=== PATIENT | female | born 1955 | race Caucasian/White ===

== ENCOUNTER 2023-10-05 14:45 | Outpatient (AMB) | payer MEDICARE, SELFPAY ==
[2023-10-05 15:08] VITALS: BP 124/80; PULSE 78; O2SAT 94; BMI 26.0
--- NOTE | 2023-10-05 15:08 | A.OFFPC_ITS ---
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 Allergies Penicillins Allergy (Mild, Verified 10/05/23 15:12) Hives soy Allergy (Mild, Verified 10/05/23 15:13) vomiting, headache gluten Allergy (Mild, Uncoded 10/05/23 15:12) stomach pain, brain fog Medication List - Last Reconciled 10/05/23 by Keyon Man MD alprazolam (Xanax) 2 mg PO DAILY atorvastatin 40 mg PO DAILY Bifidobacterium infantis (Align) 4 mg PO DAILY colestipol 2 grams PO DAILY duloxetine 60 mg PO DAILY losartan 50 mg PO DAILY Tobacco use date assessed: 10/05/23 Fall risk assessment: No Falls in past year Last assessed Fall Risk: 10/05/23 Dental Screening Dental Screen Date: 10/05/23 Did you have a dental visit in the last 12 months?: Yes Did you have a dental problem in the last 6 months where you did not have access to dental care?: No Was dental information given to patient?: Patient has dentist 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 [facility] x [facility] [facility] Last office visit/CPE: Acute issue(s): h/o Colon Ca Dr Ellsworth, Dr Hanson PMHx: Colon Ca primary w/ Liver mets. Colon Resection, Partial Liver resection, Chemo.. Barretts Esophagus, HTN, HLD, Anxiety SurgHx: Colostomy & reversal. Colon resection, Partial Liver, L shoulder. FHx: Dad: Heart disease. Mom Esophageal CA. SocHx: Quit cigs 10 yrs ago. EtOH. 2 glasses a few times a week. No drugs PFSH Medical History (Updated 10/05/23 @ 15:45 by Efra Cheng) History of liver cancer Sacral nerve stimulator present Liver cancer Colon cancer Surgical History (Updated 10/05/23 @ 15:28 by Mary Carmen Erickson [facility]) H/O resection of liver Social History Household Members: Children Housing: House Are you a primary career technical counselor to a significant other at home: No Do you presently have visiting nurse or other home services: No 75 years or older and lives alone: No Alcohol intake: current Comment: a couple Patient Tobacco Use Status: Former Tobacco user e-Cigarette/Vaping Use: Never Used service: No Current occupational status: retired Cognitive needs: No Hearing needs: No Vision needs: No Questionnaire PHQ-9 Over the last 2 weeks, how often have you been bothered by any of the following problems? 1. Little interest or pleasure in doing things: not at all 2. Feeling down, depressed, or hopeless: not at all 3. Trouble falling or staying asleep, or sleeping too much: not at all 4. Feeling tired or having little energy: not at all 5. Poor appetite or overeating: not at all 6. Feeling bad about yourself - or that you are a failure or have let yourself or your family down: not at all 7. Trouble concentrating on things, such as reading the newspaper or watching television: not at all 8. Moving or speaking so slowly that other people could have noticed. Or the opposite - being so fidgety or restless that you have been moving around a lot more than usual: not at all 9. Thoughts that you would be better off or of hurting yourself in some way: not at all Total score: 0 Depression Screening Interpretation: Negative Depression Screening Done: Yes 73349 - PHQ-9 Billing: Yes Source: Developed by Drs. Tung Freeman, Cara Mohan, Santos Anderson and colleagues, with an educational ramya from [employer]. Thrive Questionnaire Date Thrive assessed: 10/05/23 I am a: Patient What is your living situation today?: I have a steady place to live Within the past 12 months, did the food you bought not last and you didn't have the money to get more?: Never true Within the past 12 months, did you worry whether your food would run out before you got money to buy more?: Never true Do you have trouble paying for medicines?: No Do you have trouble getting transportation to medical appointments?: No Do you have trouble paying your heating and electricity bill?: No Do you have trouble taking care of your child, family member or friend?: No Do you have trouble with day-to-day activities such as bathing, preparing meals, shopping, managing finances, etc.?: No Are you currently unemployed and looking for a job?: No Are you interested in more education?: No THRIVE Score: 0 AUDIT C Alcohol Use Questionnaire (AUDIT-C) 1. How often do you have a drink containing alcohol?: 2-3 times a week 2. How many drinks containing alcohol do you have on a typical day when you are drinking?: 1 or 2 3. How often do you have six or more drinks on one occasion?: Never Total Score: 3 JULIEN-7 AMB Questionnaire JULIEN-7 Date JULIEN - 7 assessed: 10/05/23 Feeling nervous, anxious, or on edge: 0 = Not at all Not being able to stop or control worryin = Not at all Worrying too much about different things: 0 = Not at all Trouble relaxin = Not at all Being so restless that it is hard to sit still: 0 = Not at all Becoming easily annoyed or irritable: 0 = Not at all Feeling afraid as if something awful might happen: 0 = Not at all Total JULIEN-7 score (0-4 normal; 5-9 mild; 10-14 moderate; 15-21 severe): 0 Source: Developed by Drs. Tung Freeman, Cara Mohan, Santos Anderson and colleagues, with an educational ramya from [employer]. JULIEN-7 Assessment Billing JULIEN-7 Assessment Tool: JULIEN-7 Assessment 30059 Review of Systems Const Denies chills, Denies fatigue, Denies fever(s), Denies headache(s) and Denies weakness ENT Denies dizziness and Denies headache(s) Card Denies chest pain, Denies lightheadedness, Denies dyspnea and Denies other (Palpitations) Resp Denies cough, Denies dyspnea, Denies wheezing and Denies other ( shortness of breath) Musc Denies numbness and Denies tingling Neuro Denies dizziness, Denies headache(s), Denies numbness, Denies tingling, Denies paresthesias and Denies weakness Psych Denies anxiety and Denies depression Endo Denies fatigue Aller/Immun Denies wheezing Physical exam (Primary Care) BMI result Body Mass Index 26.0 Tobacco/Smoking Status: Tobacco use Status Tobacco use date assessed 10/05/23 10/05/23 15:17 Patient Tobacco Use Status Former Tobacco user 10/05/23 15:17 e-Cigarette/Vaping Use Never Used 10/05/23 15:17 Depression Screening Interpretation: Negative Const General: no acute distress and well developed Nutritional Appearance: well nourished Orientation/consciousness: patient oriented x3 HENMT Head: Yes normocephalic and Yes atraumatic Eyes General: appearance normal, both eyes and all related structures Pupils: Equal, round and reactive pupils present EOM: EOMs intact bilaterally Resp Effort & Inspection: normal respiratory effort Auscultation: clear to auscultation bilaterally Cardio Rate: regular rate Rhythm: regular rhythm Heart sounds: S1 normal heart sound present, S2 normal heart sound present, no gallops, no murmurs and no rubs Neuro General: patient oriented x3 and gait normal Cranial nerves: Yes Equal, round and reactive pupils present Psych Affect: normal affect Assessment and Plan Assessment & Plan (1) Hypertension: Code(s): I10 - Essential (primary) hypertension Plan: Blood?pressure?is?well?controlled.??Goal?is?less?than?140/90 Continue?current?medication (2) Hyperlipidemia: Code(s): E78.5 - Hyperlipidemia, unspecified Plan: Patient?is?on?atorvastatin?40?mg?daily Check?lab (3) History of colon cancer: Code(s): Z85.038 - Personal history of other malignant neoplasm of large intestine Plan: History?of?colon?cancer?with?metastases?to?the?liver?10?years?ago. S/p partial?colon?resection?and?partial?liver?resection?and?s/p?chemotherapy Now?in?remission?and?followed?by??Neil?and??Seng Follow-up?as?recommended (4) Anxiety: Code(s): F41.9 - Anxiety disorder, unspecified Plan: Stable?on?duloxetine?and?alprazolam Will?continue?her?regimen Stable (5) Laboratory exam ordered as part of routine general medical examination: Code(s): Z00.00 - Encounter for general adult medical examination without abnormal findings Plan: Check?labs Orders: Orders Lipid Panel Today Z00.00 - Encounter for general adult medical examination without abnormal findings Microalbumin, Random (w Creat) Today I10 - Essential (primary) hypertension Comprehensive Addison. Panel Fast Today Z00.00 - Encounter for general adult medical examination without abnormal findings Complete Blood Count Auto Diff Today Z00.00 - Encounter for general adult medical examination without abnormal findings UA and rflx microscopic Today Z00.00 - Encounter for general adult medical examination without abnormal findings TSH reflex Free T4 Today Z00.00 - Encounter for general adult medical examination without abnormal findings Vitamin B12 and Folate Today E53.8 - Deficiency of other specified B group vitamins Vitamin D 25-OH Total Today E55.9 - Vitamin D deficiency, unspecified Coding Level of Care Code New Pt Level 3 (52308) Diagnoses Hypertension I10 Hyperlipidemia E78.5 History of colon cancer Z85.038 Anxiety F41.9 Laboratory exam ordered as part of routine general medical examination Z00.00 Additional Codes JULIEN-7 Assessment Billing - JULIEN-7 Assessment Tool: JULIEN-7 Assessment 54605 ([id number])
== END 2023-10-05 15:55 | disposition home or self-care (01) ==
PROVIDERS: PCP Family Medicine; Visit Provider Family Medicine
DX: I10 Essential (primary) hypertension (principal); E78.5 Hyperlipidemia, unspecified; Z85.038 Personal history of other malignant neoplasm of large intestine; F41.9 Anxiety disorder, unspecified
CPT/HCPCS: 99203

== ENCOUNTER 2023-11-30 09:52 | Outpatient (REF) | payer MEDICARE, SELFPAY ==
[2023-11-30 11:13] LABS: MANUAL DIFF FLAG NO
[2023-11-30 11:44] LABS: Eosinophils Absolute Auto 0.2 X10*3/uL (0.0-0.4); Eosinophils Percent Auto 4.1 % (0-4); Hematocrit 40.2 % (37.0-47.0); Hemoglobin 12.8 g/dl (12.0-16.0); Imm Gran Abs Auto 0.01 X10*3/uL (0.00-0.03); Imm Gran Pct Auto 0.2 % (0.0-0.4); Lymphocytes Absolute Auto 1.2 X10*3/uL (1.2-4.9); Lymphocytes Percent Auto 28.6 % (20-40); Mean Corpuscular HGB Conc 31.8 g/dl (31.0-35.0); Mean Corpuscular Hemoglobin 30.3 pg (27.0-33.0); Mean Platelet Volume 10.2 fL (9.4-12.3); Monocytes Absolute Auto 0.3 X10*3/uL (0.1-1.2); Neutrophils Absolute Auto 2.4 x10*3/uL (2.0-8.3); Neutrophils Percent Auto 59.1 % (45-73); Platelet Count 273 X10*3/uL (160-400); Red Blood Count 4.23 X10*6/uL (4.20-5.50); Red Cell Distribution Width 13.1 % (11.0-16.0); White Blood Count 4.1 X10*3/uL (4.8-10.8)
[2023-11-30 11:48] LABS: Appearance Urine Clear; Color Urine Yellow; Glucose Urine UA Negative (Negative); Leukocyte Esterase Urine Moderate (2+) (Negative); Nitrite Urine Negative (Negative); PH 5.5 (5.0-9.0); UMIC TRIGGER UA YES; Urine Blood Negative (Negative); Urine Ketones Negative (Negative); Urine Protein Negative (Neg-Trace)
[2023-11-30 11:57] LABS: Bacteria Urine 4+ (None Seen); Hyaline Casts Urine 0-2 /LPF (0-2); RBC Urine 0-2 /HPF (0-2)
[2023-11-30 12:21] LABS: Creatinine Urine 39.03 mg/dL; Microalbumin Urine < 5.0 mg/L
[2023-11-30 12:25] LABS: Alanine Aminotransferase 14 U/L (0-31); Albumin Level 4.5 g/dL (3.5-5.0); Alkaline Phosphatase 93 U/L (39-117); Anion Gap 13 (12-20); Aspartate Amino Transferase 16 U/L (5-31); Bilirubin Total 0.6 mg/dL (0.0-1.0); Blood Urea Nitrogen 9 mg/dL (9-16); Calcium 10.2 mg/dL (8.4-10.2); Carbon Dioxide 28 mmol/L (22-29); Chloride 107 mmol/L (96-108); Cholesterol 164 mg/dL (<200); Estimated Glomerular Filt Rate > 60; Glucose Fasting 97 mg/dL (60-99); HDL Cholesterol 73 mg/dL (>40); LDL Cholesterol Calculated 78 mg/dL (<100); Potassium 4.5 mmol/L (3.3-5.1); Sodium 143 mmol/L (135-145); Triglycerides 66 mg/dL (<150)
[2023-11-30 12:29] LABS: TSH reflex Free T4 1.16 uIU/mL (0.32-4.0); Vitamin D 25-OH Total 35.8 ng/mL (>30)
[2023-11-30 12:38] LABS: Folate 3.2 ng/mL (> or = 4.0); Vitamin B12 254 pg/mL (200-900)
== END 2023-11-30 09:53 | disposition home or self-care (01) ==
LOC: HO.WFDLDS 09:52
PROVIDERS: Visit Provider Family Medicine
DX: Z00.00 Encounter for general adult medical examination without abnormal findings (principal); E53.8 Deficiency of other specified B group vitamins; I10 Essential (primary) hypertension; E55.9 Vitamin D deficiency, unspecified
CPT/HCPCS: 36415; 80053; 80061; 81001; 82043; 82306; 82570; 82607; 82746; 84443; 85025

== ENCOUNTER 2023-12-08 10:48 | Outpatient (AMB) | payer MEDICARE, SELFPAY ==
[2023-12-08 11:16] VITALS: BP 122/70; PULSE 80; O2SAT 97; BMI 26.2
--- NOTE | 2023-12-08 11:16 | MHC.PC.OV ---
Vital Signs 12/08/23 11:16 Height 5 ft 10 in Weight 182 lb 8 oz BMI 26.2 BP 122/70 Blood Pressure Location Lt brachial Position Sitting Pulse 80 Pulse Source Pulse Oximeter Pulse Oximetry (%) 97 Oxygen Delivery Method Room Air Intake Visit Reasons: Extended exam with f/u labs and health maint. Intake Note: Patient is here for her extended exam and follow up on labs and health maintainence. She states that when she had CT scan, they are afraid to put dye in her because of a lump in her arm. Allergies Penicillins Allergy (Mild, Verified 12/08/23 11:18) Hives soy Allergy (Mild, Verified 12/08/23 11:18) vomiting, headache gluten Allergy (Mild, Uncoded 12/08/23 11:18) stomach pain, brain fog Medication List - Last Reconciled 12/08/23 by Keyon Man MD alprazolam (Xanax) 2 mg PO DAILY atorvastatin 40 mg PO DAILY Bifidobacterium infantis (Align) 4 mg PO DAILY colestipol 2 grams PO DAILY duloxetine 60 mg PO DAILY losartan 50 mg PO DAILY Tobacco use date assessed: 10/05/23 Fall risk assessment: No Falls in past year Last assessed Fall Risk: 12/08/23 Dental Screening Dental Screen Date: 12/08/23 HPI Extended exam with f/u labs and health maint. HPI Details 68 y/o female presents for an extended exam with f/u labs and health maintenance. Labs were drawn 11/30/23. Reviewed labs with pt. Triglcyerides 66. TC 164. LDL 78. HDL 73. She is on artovastatin 40mg daily, colestipol. Vitamin D 35.8. Blood pressure today 122/70. She is on losartan 50mg daily. Pt notes she eats a healthy diet and gets plenty of exercise. [facility] Medical History History of liver cancer Sacral nerve stimulator present Liver cancer Colon cancer Surgical History H/O resection of liver Social History Household Members: Children Housing: House Are you a primary home care coordinator to a significant other at home: No Do you presently have visiting nurse or other home services: No 75 years or older and lives alone: No Alcohol intake: current Comment: a couple Patient Tobacco Use Status: Former Tobacco user e-Cigarette/Vaping Use: Never Used service: No Current occupational status: retired Cognitive needs: No Hearing needs: No Vision needs: No Questionnaire Thrive Questionnaire Date Thrive assessed: 10/05/23 JULIEN-7 AMB Questionnaire JULIEN-7 Date JULIEN - 7 assessed: 10/05/23 Source: Developed by Drs. Tung Freeman, Cara Mohan, Santos Anderson and colleagues, with an educational ramya from [email or web address]. Review of Systems Const Denies chills, Denies fatigue, Denies fever(s), Denies headache(s) and Denies weakness Eyes Denies change in vision ENT Denies dizziness, Denies headache(s), Denies hearing loss, Denies nasal congestion, Denies sinus pain, Denies sinus pressure and Denies sore throat Card Denies chest pain, Denies lightheadedness, Denies dyspnea and Denies other (palpitations) Resp Denies cough, Denies dyspnea and Denies wheezing GI Denies abdominal pain, Denies melena, Denies hematochezia, Denies change in bowel habits, Denies dyspepsia and Denies nausea Denies hematuria and Denies dysuria Musc Denies abnormal gait, Denies myalgias, Denies arthralgias, Denies numbness and Denies tingling Skin/Breast Denies rash, Denies unusual bruising and Denies wounds Neuro Denies abnormal gait, Denies dizziness, Denies headache(s), Denies memory loss, Denies numbness, Denies Sensory deficit (Neuro), Denies tingling and Denies weakness Psych Denies anxiety, Denies depression and Denies memory loss Endo Denies cold intolerance, Denies fatigue, Denies heat intolerance, Denies polydipsia and Denies polyuria [place]/Lymph Denies easy bleeding and Denies easy bruising Aller/Immun Denies wheezing Physical exam (Primary Care) Vital Signs: Last Vital Signs Pulse 80 12/08/23 11:16 BP 122/70 12/08/23 11:16 Pulse Ox 97 12/08/23 11:16 Oxygen Delivery Method Room Air 12/08/23 11:16 BMI result Body Mass Index 26.2 Tobacco/Smoking Status: Tobacco use Status Tobacco use date assessed 10/05/23 12/08/23 11:18 Patient Tobacco Use Status Former Tobacco user 12/08/23 11:18 e-Cigarette/Vaping Use Never Used 12/08/23 11:18 Thrive Assessment: Date of Thrive Assessment Date Thrive assessed 10/05/23 12/08/23 11:18 Const General: no acute distress, well developed, alert and awake Nutritional Appearance: well nourished Orientation/consciousness: patient oriented x3 HENMT Head: Yes normocephalic and Yes atraumatic Ears: hearing grossly normal bilaterally and TM's normal bilaterally General nose exam: Normal external nose present and Normal nares present Mouth: Normal oral and palatal mucosa present and moist mucous membranes Teeth and gingiva: dentition normal Throat: Yes posterior oropharynx normal Eyes General: appearance normal, both eyes and all related structures Pupils: Equal, round and reactive pupils present and Pupil accommodation reflex normal EOM: EOMs intact bilaterally Neck Neck: Yes normal visual inspection, Yes no lymphadenopathy and Yes trachea midline Thyroid: Thyroid normal Carotids: no bruits Lymphatic: no lymphadenopathy noted Chest Chest palpation & inspection: normal inspection of the chest Resp Effort & Inspection: normal respiratory effort Auscultation: clear to auscultation bilaterally Cardio Rate: regular rate Rhythm: regular rhythm Heart sounds: S1 normal heart sound present, S2 normal heart sound present, no gallops, no murmurs and no rubs Bruits: no abdominal aortic bruits and no carotid bruits GI Palpation (GI): No Abdominal aortic bruit present, Soft to palpation, nontender, No hepatosplenomegaly present and No Rebound tenderness present Auscultation: normal bowel sounds General: Yes no CVA tenderness Back/Spine/Pelvis Back: no CVA tenderness Cervical Spine: cervical ROM normal and No Cervical spine tenderness Thoracic/Lumbar Spine: thoraco-lumbar ROM normal, No pain with thoraco-lumbar ROM, No thoracic spinal tenderness and No lumbar spinal tenderness Skin Lesions: no lesions Rashes: no rashes Trauma: no lacerations or abrasions Wounds: no wounds Nails: normal Neuro General: patient oriented x3 Cranial nerves: Yes Equal, round and reactive pupils present Cognition (Neuro): normal cognition Gait exam (Neuro): Normal gait present Motor exam (neuro): 5/5 motor strength present throughout Sensory Exam: No Sensory deficit (Neuro) Deep tendon reflexes (DTR's): Right patellar reflex intensity grade: 2+ and Left patellar reflex intensity grade: 2+ Extrem General: Yes normal to inspection and No edema Psych Appearance: grossly normal Affect: normal affect Attitude: cooperative Thought process: Normal thought process present Assessment and Plan Assessment & Plan (1) Hyperlipidemia: Code(s): E78.5 - Hyperlipidemia, unspecified Plan: Lipids?are?well?controlled?on?atorvastatin Continue?current?medication (2) Hypertension: Code(s): I10 - Essential (primary) hypertension Plan: Blood?pressure?is?well?controlled goal?is?less?than?140/90 Continue?current?medication (3) Screening for colon cancer: Code(s): Z12.11 - Encounter for screening for malignant neoplasm of colon Plan: Followed?by?her?ornamental ironworker helper,??Valentin History?of?colon?cancer Follow-up?with?GI?and?Hematology-Oncology?as?recommended (4) Breast cancer screening by mammogram: Code(s): Z12.31 - Encounter for screening mammogram for malignant neoplasm of breast Plan: Overdue?for?mammogram-ordered (5) Screening for osteoporosis: Code(s): Z13.820 - Encounter for screening for osteoporosis Plan: Patient?says?she?had?a?bone?density?test?within?the?past?2?years?at[facility] Will?request?report (6) Adult general medical exam: Code(s): Z00.00 - Encounter for general adult medical examination without abnormal findings Plan: 68-year-old?female?presents?for?extended?exam Orders: Orders MM tomosynthesis screening BI Today Z12.31 - Encounter for screening mammogram for malignant neoplasm of breast US extremity nonvascular moreno Today M79.89 - Other specified soft tissue disorders Medications: New folic acid 0.4 mg PO DAILY 90 days 90 tabs 3RF Coding Level of Care Code Est Pt Level 4 (24521) Diagnoses Hyperlipidemia E78.5 Hypertension I10 Screening for colon cancer Z12.11 Breast cancer screening by mammogram Z12.31 Screening for osteoporosis Z13.820 Adult general medical exam Z00.00
== END 2023-12-08 11:51 | disposition home or self-care (01) ==
PROVIDERS: PCP Family Medicine; Visit Provider Family Medicine
DX: Z00.00 Encounter for general adult medical examination without abnormal findings (principal); E78.5 Hyperlipidemia, unspecified; I10 Essential (primary) hypertension; Z12.11 Encounter for screening for malignant neoplasm of colon; Z12.31 Encounter for screening mammogram for malignant neoplasm of breast; Z13.820 Encounter for screening for osteoporosis
CPT/HCPCS: 99213; 99397

== ENCOUNTER 2023-12-15 15:05 | Outpatient (REF) | payer MEDICARE, SELFPAY ==
--- NOTE | ~2023-12-15 | US_ITS ---
EXAMINATION: ULTRASOUND SOFT TISSUES RIGHT ANTECUBITAL SPACE CLINICAL INFORMATION: Other specified soft tissue disorders, swelling/lump at right antecubital space. COMPARISON: None available. TECHNIQUE: Targeted ultrasound images were obtained by the second chef of the area of concern as indicated by the patient in the right antecubital space. Radiologist was not in attendance. Images were later provided for interpretation. FINDINGS: No discrete mass or fluid collection identified in the area of concern as indicated by the patient in the right antecubital space. Incidental note of varicosity in the right cephalic vein with no demonstrable reflux. Right cephalic vein appears patent and demonstrates compression. US/US extremity nonvascular moreno IMPRESSION: 1. No discrete mass or fluid collection identified in the area of concern as indicated by the patient in the right antecubital space. 2. Incidental note of varicosity in the right cephalic vein with no demonstrable reflux. Right cephalic vein appears patent and demonstrates compression. 3. Decisions regarding further imaging, treatment or biopsy should be based on the clinical exam, as not all abnormalities are detectable on ultrasound studies.
== END 2023-12-15 15:06 | disposition home or self-care (01) ==
LOC: HO.US 15:05
PROVIDERS: PCP Family Medicine; Visit Provider Family Medicine
DX: R60.0 Localized edema (principal)
CPT/HCPCS: 76882

== ENCOUNTER 2024-01-04 14:06 | Outpatient (REF) | payer MEDICARE, SELFPAY ==
--- NOTE | ~2024-01-04 | MM_ITS ---
EXAMINATION: MM SCREENING DIGITAL BREAST TOMOSYNTHESIS, BILATERAL CLINICAL INFORMATION: Screening. Asymptomatic. COMPARISON: Mammography: This study is compared with prior exams dating back to 2021. TECHNIQUE: Digital breast tomosynthesis is performed in both the craniocaudal and mediolateral oblique views along with computer-aided detection (CAD). Synthesized 2D images are generated from the tomosynthesis. FINDINGS: The breasts are heterogeneously dense, which may obscure small masses (ACR BI-RADS breast composition Category c). In the upper outer quadrant of the left breast, at a middle depth, there is a focal asymmetry which warrants additional mammographic and targeted sonographic imaging. In the right breast, there are no significant masses, abnormal calcifications, or other abnormalities. MM/MM tomosynthesis screening BI IMPRESSION: Focal asymmetry of the left breast warrants additional Mammographic and targeted sonographic imaging. No mammographic signs of malignancy right breast. ASSESSMENT: BI-RADS BI-RADS 0 - Incomplete: Needs additional Imaging. RECOMMENDATION: 1. Additional views of the left breast. 2. Targeted ultrasound if warranted after review of the additional views. 3. Radiology department staff will contact the patient for additional imaging. Additional Imaging required This examination should not preclude the clinical evaluation of a suspicious palpable abnormality. This patient's information was entered into a reminder system with a target due date for their next mammogram.
== END 2024-01-04 14:07 | disposition home or self-care (01) ==
LOC: HO.MAMMO 14:06
PROVIDERS: PCP Family Medicine; Visit Provider Family Medicine
DX: Z12.31 Encounter for screening mammogram for malignant neoplasm of breast (principal)
CPT/HCPCS: 77063; 77067

== ENCOUNTER → 2024-01-04 14:08 | Outpatient (BNV) | payer MEDICARE, SELFPAY | PROVIDERS: PCP Family Medicine; Visit Provider Radiology Diagnostic Radiology | DX: Z12.31 Encounter for screening mammogram for malignant neoplasm of breast (principal) | CPT/HCPCS: 77063; 77067 ==

== ENCOUNTER 2024-01-12 12:18 | Outpatient (AMB) | payer MEDICARE, SELFPAY ==
[2024-01-12 12:36] VITALS: BP 122/70; PULSE 85; O2SAT 100; BMI 26.0
--- NOTE | 2024-01-12 12:41 | MHC.OFFWIV ---
Intake Vital Signs 01/12/24 12:36 Height 5 ft 10 in Weight 181 lb 6 oz BMI 26.0 BP 122/70 Blood Pressure Location Lt brachial Position Sitting Pulse 85 Pulse Source Pulse Oximeter Pulse Oximetry (%) 100 Oxygen Delivery Method Room Air Intake Visit Reasons: Sinus infection Intake Note: Patient iis here with sinus infection [id number] for 4 days. Patient Tobacco Use Status: Former Tobacco user Allergies Penicillins Allergy (Mild, Verified 01/12/24 12:51) Hives soy Allergy (Mild, Verified 01/12/24 12:51) vomiting, headache gluten Allergy (Mild, Uncoded 01/12/24 12:40) stomach pain, brain fog Medication List - Last Reconciled 01/12/24 by Domonique Marcos, MUSIC EDUCATOR- alprazolam (Xanax) 2 mg PO DAILY atorvastatin 40 mg PO DAILY Bifidobacterium infantis (Align) 4 mg PO DAILY colestipol 2 grams PO DAILY duloxetine 60 mg PO DAILY folic acid 0.4 mg PO DAILY 90 days losartan 50 mg PO DAILY Do you need a note to return to daycare/school/sports/work: No HPI HPI Comments History of Present Illness Details 68-year-old female here today with chief complaints of pressure on the right side of her face. She reports that she was in her normal state of health until about 4 days ago when she developed a redness around the cheek bone on the right side. She at 1st thought that perhaps this was a clogged tear duct and self-treated with saline rinses and Visine. She noticed improvement in the redness of the skin however then felt pressure in the sinuses, blocked sensation in the right ear, postnasal drip. Awake alert NAD Sclera and conjunctiva clear bilat Nares mucoid d/c R , turbinates pale and edematous, + maxillary sinus tenderness with palpation R TM intact bilat w/ what appears to be resolving TM rupture on R, + congestion behind both TM MMM, pharynx WNL , + PND RRR LS CTAB Plan Treat for sinusitis using azithromycin, as she has an allergy to penicillin. Reports she has responded well in the past this. Advised to discontinue the use of the eye drops unless this provide some sort of benefit for her. Educated to return to the office if her symptoms not improve in 7-10 days or if her symptoms worsen. In regards to the R TM it is intact and appears w/o complication. This note is constructed using voice recognition software. While every effort has been made to ensure accuracy in scudding inspector, still errors may have been included Sometimes, these errors may affect the content or meaning of the given sentence . [facility] Medical History History of liver cancer Sacral nerve stimulator present Liver cancer Colon cancer Surgical History H/O resection of liver Social History Household Members: Children Housing: House Are you a primary personal care aid to a significant other at home: No Do you presently have visiting nurse or other home services: No 75 years or older and lives alone: No Alcohol intake: current Comment: a couple Patient Tobacco Use Status: Former Tobacco user e-Cigarette/Vaping Use: Never Used service: No Current occupational status: retired Cognitive needs: No Hearing needs: No Vision needs: No Physical Exam Vital Signs: Last Vital Signs Pulse 85 01/12/24 12:36 BP 122/70 01/12/24 12:36 Pulse Ox 100 01/12/24 12:36 Oxygen Delivery Method Room Air 01/12/24 12:36 BMI result Body Mass Index 26.0 Assessment & Plan Assessment & Plan (1) Acute bacterial sinusitis: Code(s): J01.90 - Acute sinusitis, unspecified; B96.89 - Other specified bacterial agents as the cause of diseases classified elsewhere Plan: . Plan . Medications: New azithromycin For 250 mg dose pack: take 500 mg today (day 1), then 250 mg for 4 days (days 2-5) PO 5 days 6 tabs 0RF Patient Instructions: What Is It? Sinuses are air-filled spaces behind the bones of the upper face: between the eyes and behind the forehead, nose and cheeks. The lining of the sinuses are made up of cells with tiny hairs on their surfaces called cilia. Other cells in the lining produce mucus. The mucus traps germs and pollutants and the cilia push the mucus out through narrow sinus openings into the nose. When the sinuses become inflamed or infected, the mucus thickens and clogs the openings to one or more sinuses. Fluid builds up inside the sinuses causing increased pressure. Also bacteria can become trapped, multiply and infect the lining. This is sinusitis. Prevention There are some measures you can take to decrease your risk of developing sinusitis. If you smoke cigarettes, you should quit. The smoke can irritate nasal passageways and increase the likelihood of infection. Nasal allergies can trigger sinus infections, too. By identifying the allergen (the substance causing the allergic reaction) and avoiding it, you can help prevent sinusitis. If you have congestion from a cold or allergies, the following may help to reduce the risk of developing sinusitis: Drink lots of water. This thins nasal secretions and keeps mucous membranes moist. Use steam to soothe nasal passages. Breathe deeply while standing in a hot shower, or inhale the vapor from a basin filled with hot water while holding a towel over your head. Avoid blowing your nose with great force, which can push bacteria into the sinuses. Some doctors advise periodic home nasal washings to clear secretions. This may help prevent, and also treat, sinus infections. Treatment Many sinus infections improve without treatment. However, several medications may speed recovery and reduce the chance that an infection will become chronic. Decongestants - Congestion often triggers sinus infections, and decongestants can open the sinuses and allow them to drain. Several are available: Pseudoephedrine (Sudafed) is available without prescription, alone or in combination with other medications in multi-symptom cold and sinus remedies. Pseudoephedrine can cause insomnia, racing pulse and jitteriness. Do not use if you have high blood pressure or a heart condition. Phenylephrine (such as Sudafed PE) is an alternative bteh-ekq-rleckra oral decongestant. If you take products containing oral phenylephrine, check with the pharmacist to be certain there is no interaction with other medications you take. Oxymetazoline (AfrinTej and others) and phenylephrine (Justino-Synephrine and others) are found in nasal sprays. They are effective and may be less likely to cause the side effects seen with pseudoephedrine. However, using a nasal decongestant for more than three days can cause worse symptoms when you stop the medication. This is called the rebound effect. Antihistamines - These medications help to relieve the symptoms of nasal allergies that lead to inflammation and infections. However, some doctors advise against using antihistamines during a sinus infection because they can cause excessive drying and slow the drainage process. Tzsg-emw-hbcsmln antihistamines include diphenhydramine (Benadryl and others), chlorpheniramine (Chlor-Trimeton and others) and loratadine (Claritin). Fexofenadine (Laura) and cetrizine (Zyrtec) are available by prescription. Nasal steroids - Anti-inflammatory sprays such as mometasone (Nasonex) and fluticasone (Flonase), both available by prescription, reduce swelling of nasal membranes. Like antihistamines, nasal steroids can be most useful for those who have nasal allergies. Nasal steroids tend to produce less drying than antihistamines. Unlike nasal decongestants, nasal steroids can be used for prolonged periods. Saline nasal sprays - These salt-water sprays are safe to use and can provide some relief by adding moisture to the nasal passages, thinning mucus secretions and helping to flush out any bacteria that may be present. Pain relievers - Acetaminophen (Tylenol), ibuprofen (Advil, Motrin and others) or naproxen (Aleve) can be taken sinus pain. Antibiotics - Your doctor may prescribe an antibiotic if he or she suspects that a bacterial infection is causing your sinusitis. If you start taking an antibiotic, complete the entire course so that the infection is completely killed off. Not all cases of sinusitis require antibiotic treatment: Talk with your doctor about whether an antibiotic is right for you. Keep in mind that antibiotics can cause side effects, such as allergic reactions, rash and diarrhea. In addition, overusing antibiotics eventually leads to the spread of bacteria that no longer can be killed by the most commonly prescribed antibiotics. When To Call A Professional Contact a doctor if you experience facial pain along with a headache and fever, cold symptoms that last longer than seven to 10 days, or persistent green discharge from the nose. If your symptoms don't improve within a week of beginning treatment, call your doctor. Call sooner if symptoms are getting worse. If you have repeated bouts of acute sinusitis, you may have allergies or another treatable cause of sinus congestion. Ask your doctor for advice. Coding Level of Care Code Est Pt Level 3 (90867) Diagnoses Acute bacterial sinusitis J01.90; B96.89
== END 2024-01-12 12:58 | disposition home or self-care (01) ==
PROVIDERS: PCP Family Medicine; Visit Provider Nurse Practitioner Family
DX: J01.90 Acute sinusitis, unspecified (principal); B96.89 Other specified bacterial agents as the cause of diseases classified elsewhere
CPT/HCPCS: 99213

== ENCOUNTER 2024-03-08 13:13 | Outpatient (REF) | payer MEDICARE, SELFPAY ==
--- NOTE | ~2024-03-08 | US_ITS ---
EXAMINATION: MM DIAGNOSTIC DIGITAL BREAST TOMOSYNTHESIS, LEFT US BREAST LIMITED, LEFT MAMMOGRAPHY: CLINICAL INFORMATION: Diagnostic left mammography; call back from screening for focal asymmetry upper outer quadrant left breast approximately 1-2 o'clock axis. COMPARISON: Mammography: 01/04/2024, 05/02/2022 ([facility]). TECHNIQUE: Digital breast tomosynthesis is in the following views: Full field 3-D left mediolateral view, as well as 3-D Spot compression left CC and left MLO x2 views. This was followed by targeted left breast ultrasound. FINDINGS: The breasts are heterogeneously dense, which may obscure small masses (ACR BI-RADS breast composition Category c). Diagnostic views demonstrate persistence of an oval circumscribed mass 2:00 axis of the left breast, middle one third, measuring approximately 1.0 cm in diameter. This will be evaluated by ultrasound. There are no additional suspicious findings in the left breast. ULTRASOUND: CLINICAL INFORMATION: As above. COMPARISON: None TECHNIQUE: Targeted sonographic evaluation left breast upper outer quadrant was performed using a high frequency linear transducer. Selected archived documentation. FINDINGS: LEFT BREAST: -There is a simple cyst in the 2:00 axis of the left breast, 4 cm from the nipple, measuring 9 x 9 x 6 mm, corresponding well with the abnormality seen in the left breast mammography. This finding is benign. There are no suspicious findings. US/US breast LT limited mamm only IMPRESSION: -There are no findings suspicious for malignancy in the left breast. -Index focal asymmetry left breast upper outer quadrant corresponds with a simple cyst on ultrasound. Finding is benign. No further follow-up recommended. OVERALL ASSESSMENT: Mammography: BI-RADS 2 - Benign Findings Ultrasound: BI-RADS 2 - Benign Findings RECOMMENDATION: 1 year F/U This patient's information was entered into a reminder system with a target due date for their next mammogram. Electronically signed by: Quentin Floyd MD 03/08/2024 02:51 PM EDT
== END 2024-03-08 13:14 | disposition home or self-care (01) ==
LOC: HO.MAMMO 13:13
PROVIDERS: PCP Family Medicine; Visit Provider Family Medicine
DX: N64.89 Other specified disorders of breast (principal)
CPT/HCPCS: 76642; 77061; 77065

== ENCOUNTER → 2024-03-08 13:30 | Outpatient (BNV) | payer MEDICARE, SELFPAY | PROVIDERS: PCP Family Medicine; Visit Provider Radiology Diagnostic Radiology | DX: N60.02 Solitary cyst of left breast (principal) | CPT/HCPCS: 76642; 77065; G0279 ==

== ENCOUNTER 2024-03-11 10:28 | Outpatient (AMB) | payer MEDICARE, SELFPAY ==
--- NOTE | 2024-03-11 10:56 | A.OFFPC_ITS ---
Vital Signs 03/11/24 11:00 Height 5 ft 10 in Weight 184 lb 2 oz BMI 26.4 BP 106/80 Blood Pressure Location Lt brachial Position Sitting Respiration 12 Pulse 95 Pulse Source Pulse Oximeter Temp 97.9 F Temp Source Tympanic Pulse Oximetry (%) 97 Oxygen Delivery Method Room Air Intake Visit Reasons: f/u hypertension, chronic conditions Intake Note: follow up for HTN Allergies Penicillins Allergy (Mild, Verified 03/11/24 10:58) Hives soy Allergy (Mild, Verified 03/11/24 10:58) vomiting, headache gluten Allergy (Mild, Uncoded 01/12/24 12:40) stomach pain, brain fog Tobacco use date assessed: 10/05/23 Dental Screening Dental Screen Date: 12/08/23 HPI f/u hypertension, chronic conditions HPI Details 68 y/o female presents to f/u hypertensi on, chronic conditions. F/u on ultrasound of L antecubital space for swelling/lump. Extremity ultrasound 12/15/23 showed no discrete mass or fluid collection. Breast ultrasound showed no suspicious findings for malignancy in L breast. Per note, index focal asymmetry left breast upper outer quadrant corresponds with a simple cyst on ultrasound. Finding is benign. No further follow-up recommended. Blood pressure today 106/80, 95p. She is on losartan 50mg daily. Has complaints of sinus congestion. HPI Comments History of Present Illness Details Documentation assistance for Keyon Man MD, was provided by Efra Cheng, Foam Cutting Supervisor on 03/11/2024 at 11:27 AM MADALYN. Melanie, Dr. Man, have read, observed, and verified documentation. PFS Medical History History of liver cancer Sacral nerve stimulator present Liver cancer Colon cancer Surgical History H/O resection of liver Social History Household Members: Children Housing: House Are you a primary child day care center worker to a significant other at home: No Do you presently have visiting nurse or other home services: No 75 years or older and lives alone: No Alcohol intake: current Comment: a couple Patient Tobacco Use Status: Former Tobacco user e-Cigarette/Vaping Use: Never Used service: No Current occupational status: retired Cognitive needs: No Hearing needs: No Vision needs: No Questionnaire Thrive Questionnaire Date Thrive assessed: 10/05/23 AUDIT C Alcohol Use Questionnaire (AUDIT-C) 2. How many drinks containing alcohol do you have on a typical day when you are drinking?: 1 or 2 3. How often do you have six or more drinks on one occasion?: Never Total Score: 0 JULIEN-7 AMB Questionnaire JULIEN-7 Date JULIEN - 7 assessed: 10/05/23 Source: Developed by Drs. Tung Freeman, Cara Mohan, Santos Anderson and colleagues, with an educational ramya from [employer]. Review of Systems Const Denies chills, Denies fatigue, Denies fever(s), Denies headache(s) and Denies weakness ENT Denies dizziness and Denies headache(s) Card Denies dyspnea Resp Denies cough, Denies dyspnea, Denies wheezing and Denies other (shortness of breath) Musc Denies numbness and Denies tingling Neuro Denies dizziness, Denies headache(s), Denies numbness, Denies tingling and Denies weakness Psych Denies anxiety and Denies depression Endo Denies fatigue Aller/Immun Denies wheezing Physical exam (Primary Care) Vital Signs: Last Vital Signs Temp 97.9 F 03/11/24 11:00 Pulse 95 03/11/24 11:00 Resp 12 03/11/24 11:00 BP 106/80 03/11/24 11:00 Pulse Ox 97 03/11/24 11:00 Oxygen Delivery Method Room Air 03/11/24 11:00 BMI result Body Mass Index 26.4 Tobacco/Smoking Status: Tobacco use Status Tobacco use date assessed 10/05/23 03/11/24 10:57 Patient Tobacco Use Status Former Tobacco user 03/11/24 10:57 e-Cigarette/Vaping Use Never Used 03/11/24 10:57 Thrive Assessment: Date of Thrive Assessment Date Thrive assessed 10/05/23 03/11/24 10:57 Const General: well developed; No acute distress Nutritional Appearance: well nourished Orientation/consciousness: patient oriented x3 HENMT Head: Yes normocephalic and Yes atraumatic Eyes General: appearance normal, both eyes and all related structures Pupils: Equal, round and reactive pupils present EOM: EOMs intact bilaterally Resp Effort & Inspection: normal respiratory effort Neuro General: patient oriented x3 and gait normal Cranial nerves: Yes Equal, round and reactive pupils present Psych Affect: normal affect Assessment and Plan Assessment & Plan (1) Hypertension: Code(s): I10 - Essential (primary) hypertension Plan: Blood?pressure?is?controlled.??Goal?is?less?than?140/90 Continue?current?medication (2) Breast cancer screening by mammogram: Code(s): Z12.31 - Encounter for screening mammogram for malignant neoplasm of breast Plan: Mammogram?required?additional?views?and?ultrasound Overall?impression?is?benign?fi ndings.??They?recommended?annual?screening?which?we?will?continue (3) Sinus congestion: Code(s): R09.81 - Nasal congestion Plan: Patient?has?right?ear?discomfort?and?a?crackling?sound?with?serous?fluid?behind? TM Recent?infection?and?TM?perforation?which?appears?to?have?closed. Will?give?her?a?nasal?steroid?to?try?to?decrease?nasal?congestion She?says?she?currently?lives?in?a?basement?and?symptoms?are?worse?when?she?is?in ?bed - advised?have?filtration?and?hypoallergenic?bedding If?worsening?or?not?improving?will?refer?to?ENT (4) Discomfort of right ear: Code(s): H92.01 - Otalgia, right ear Plan: As?above (5) Localized swelling of right forearm: Code(s): R22.31 - Localized swelling, mass and lump, right upper limb Plan: Patient?still?notes?that?she?gets?swelling?at?right?antecubital?space?which?goes ?up?and?down. Ultrasound?was?negative She?notes?this?worsens?with?exertion/exercise?of?her?arm Of?note,?the?ultrasound?did?show?a?varicose?vein Likely?just?some mild?edema. She?will?let?me?know?if?this?is?worsened. Monitoring Medications: New fluticasone propionate 50 mcg/actuation (Flonase Allergy Relief) administer into each nostril 1 spray intranasal Q12H 30 days 16 grams 2RF Coding Level of Care Code Est Pt Level 3 (28105) Diagnoses Hypertension I10 Breast cancer screening by mammogram Z12.31 Sinus congestion R09.81 Discomfort of right ear H92.01 Localized swelling of right forearm R22.31
[2024-03-11 11:00] VITALS: BP 106/80; PULSE 95; RESP 12; TEMP 36.6; O2SAT 97; BMI 26.4
== END 2024-03-11 11:41 | disposition home or self-care (01) ==
PROVIDERS: PCP Family Medicine; Visit Provider Family Medicine
DX: I10 Essential (primary) hypertension (principal); Z12.31 Encounter for screening mammogram for malignant neoplasm of breast; R09.81 Nasal congestion; H92.01 Otalgia, right ear; R22.31 Localized swelling, mass and lump, right upper limb
CPT/HCPCS: 99213

== ENCOUNTER 2024-06-08 11:38 | Outpatient (AMB) | payer MEDICARE, SELFPAY ==
--- NOTE | 2024-06-08 12:12 | A.OFFPC_ITS ---
Vital Signs 06/08/24 12:14 Height 5 ft 10 in Weight 192 lb 4 oz BMI 27.6 BP 120/80 Blood Pressure Location Lt brachial Position Sitting Respiration 16 Pulse 83 Pulse Source Pulse Oximeter Pulse Oximetry (%) 95 Oxygen Delivery Method Room Air Intake Visit Reasons: f/u hypertension, chronic conditions Intake Note: f/u for HTN and chronic conditions Allergies Penicillins Allergy (Mild, Verified 06/08/24 12:13) Hives soy Allergy (Mild, Verified 06/08/24 12:13) vomiting, headache gluten Allergy (Mild, Uncoded 01/12/24 12:40) stomach pain, brain fog Medication List - Last Reconciled 06/08/24 by Keyon Man MD alprazolam (Xanax) 2 mg PO DAILY 30 days atorvastatin 40 mg PO DAILY Bifidobacterium infantis (Align) 4 mg PO DAILY colestipol 2 grams PO DAILY duloxetine 60 mg PO DAILY 90 days fluticasone propionate 50 mcg/actuation (Flonase Allergy Relief) 1 spray intranasal Q12H 30 days folic acid 0.4 mg PO DAILY 90 days losartan 50 mg PO DAILY 90 days pantoprazole 40 mg PO DAILY 90 days Tobacco use date assessed: 10/05/23 Dental Screening Dental Screen Date: 12/08/23 HPI f/u hypertension, chronic conditions HPI Details 68 y/o female presents to f/u hypertensi on, chronic conditions. Blood pressure today 120/80, 83p. She is on losartan 50mg daily. [facility] Medical History History of liver cancer Sacral nerve stimulator present Liver cancer Colon cancer Surgical History H/O resection of liver Social History Household Members: Children Housing: House Are you a primary respiratory care program director to a significant other at home: No Do you presently have visiting nurse or other home services: No 75 years or older and lives alone: No Alcohol intake: current Comment: a couple Patient Tobacco Use Status: Former Tobacco user e-Cigarette/Vaping Use: Never Used service: No Current occupational status: retired Cognitive needs: No Hearing needs: No Vision needs: No Questionnaire PHQ-9 Over the last 2 weeks, how often have you been bothered by any of the following problems? 1. Little interest or pleasure in doing things: not at all 2. Feeling down, depressed, or hopeless: not at all 3. Trouble falling or staying asleep, or sleeping too much: several days 4. Feeling tired or having little energy: not at all 5. Poor appetite or overeating: not at all 6. Feeling bad about yourself - or that you are a failure or have let yourself or your family down: not at all 7. Trouble concentrating on things, such as reading the newspaper or watching television: not at all 8. Moving or speaking so slowly that other people could have noticed. Or the opposite - being so fidgety or restless that you have been moving around a lot more than usual: not at all 9. Thoughts that you would be better off or of hurting yourself in some way: not at all Total score: 1 Source: Developed by Drs. Tung Freeman, Cara Mohan, Santos Anderson and colleagues, with an educational ramya from [employer]. Thrive Questionnaire Date Thrive assessed: 06/01/24 I am a: Patient What is your living situation today?: I have a steady place to live Within the past 12 months, did the food you bought not last and you didn't have the money to get more?: Never true Within the past 12 months, did you worry whether your food would run out before you got money to buy more?: Never true Do you have trouble paying for medicines?: No Do you have trouble getting transportation to medical appointments?: No Do you have trouble paying your heating and electricity bill?: No Do you have trouble taking care of your child, family member or friend?: No Do you have trouble with day-to-day activities such as bathing, preparing meals, shopping, managing finances, etc.?: No Are you currently unemployed and looking for a job?: No Are you interested in more education?: No Please select the resources that you would like help with: None Currently or been in a relationship where the following occur: No concerns reported THRIVE Score: 0 AUDIT C Alcohol Use Questionnaire (AUDIT-C) 1. How often do you have a drink containing alcohol?: 2-4 times a month Total Score: 2 JULIEN-7 AMB Questionnaire JULIEN-7 Date JULIEN - 7 assessed: 10/05/23 Feeling nervous, anxious, or on edge: 1 = Several days Not being able to stop or control worryin = Several days Worrying too much about different things: 0 = Not at all Trouble relaxin = Not at all Being so restless that it is hard to sit still: 0 = Not at all Becoming easily annoyed or irritable: 1 = Several days Feeling afraid as if something awful might happen: 0 = Not at all Total JULIEN-7 score (0-4 normal; 5-9 mild; 10-14 moderate; 15-21 severe): 3 Source: Developed by Drs. Tung Freeman, Cara Mohan, Santos Anderson and colleagues, with an educational ramya from [employer]. Review of Systems Const Denies chills, Denies fatigue, Denies fever(s), Denies headache(s) and Denies weakness ENT Denies dizziness and Denies headache(s) Card Denies dyspnea Resp Denies cough, Denies dyspnea, Denies wheezing and Denies other (shortness of br eath) Musc Denies numbness and Denies tingling Neuro Denies dizziness, Denies headache(s), Denies numbness, Denies tingling and Denies weakness Psych Denies anxiety and Denies depression Endo Denies fatigue Aller/Immun Denies wheezing Physical exam (Primary Care) Vital Signs: Last Vital Signs Pulse 83 06/08/24 12:14 Resp 16 06/08/24 12:14 BP 120/80 06/08/24 12:14 Pulse Ox 95 06/08/24 12:14 Oxygen Delivery Method Room Air 06/08/24 12:14 BMI result Body Mass Index 27.6 Tobacco/Smoking Status: Tobacco use Status Tobacco use date assessed 10/05/23 06/08/24 12:17 Patient Tobacco Use Status Former Tobacco user 06/08/24 12:17 e-Cigarette/Vaping Use Never Used 06/08/24 12:17 PHQ-9: PHQ-9 Score PHQ-9: Total score 1 06/08/24 12:37 Thrive Assessment: Date of Thrive Assessment Date Thrive assessed 06/01/24 06/08/24 12:17 Currently or been in a relationship where the following occur: No concerns reported Const General: well developed; No acute distress Nutritional Appearance: well nourished Orientation/consciousness: patient oriented x3 HENMT Head: Yes normocephalic and Yes atraumatic Eyes General: appearance normal, both eyes and all related structures Pupils: Equal, round and reactive pupils present EOM: EOMs intact bilaterally Resp Effort & Inspection: normal respiratory effort Neuro General: patient oriented x3 and gait normal Cranial nerves: Yes Equal, round and reactive pupils present Psych Affect: normal affect Coding Level of Care Code Est Pt Level 3 (30937) Diagnoses Hypertension I10 Discomfort of right ear H92.01 Anxiety F41.9 Assessment & Plan Assessment & Plan (1) Hypertension: Code(s): I10 - Essential (primary) hypertension Category: Medical Plan: Blood?pressure?is?controlled.??Goal?is?less?than?140/90 Continue?current?medication?regimen (2) Discomfort of right ear: Code(s): H92.01 - Otalgia, right ear Category: Medical Plan: Discomfort?at?right?ear?with?pressure Patient?know?that? this?worsens?when?she?goes?to?certain?houses?particularly?with?carpets. Likely?underlying?issue?is?allergy Had?given?her?a?nasal?steroid?and?also?advised?she?use?an?air?filter. Still?having?problems?so?I?will?refer?her?to?ENT (3) Anxiety: Code(s): F41.9 - Anxiety disorder, unspecified Category: Medical Plan: Stable?on?alprazolam & duloxetine Continue?current?regimen Orders: Referrals Ear/Nose/Throat Referral H92.01 - Otalgia, right ear Medications: New pantoprazole 40 mg PO DAILY 90 days 90 tabs 3RF Changed From duloxetine 60 mg PO DAILY To duloxetine 60 mg PO DAILY 90 days 90 caps 2RF From alprazolam (Xanax) 2 mg PO DAILY To alprazolam (Xanax) 2 mg PO DAILY 30 days 30 tabs 0RF From losartan 50 mg PO DAILY To losartan 50 mg PO DAILY 90 days 90 tabs 3RF
[2024-06-08 12:14] VITALS: BP 120/80; PULSE 83; RESP 16; O2SAT 95; BMI 27.6
== END 2024-06-08 12:51 | disposition home or self-care (01) ==
PROVIDERS: PCP Family Medicine; Visit Provider Family Medicine
DX: I10 Essential (primary) hypertension (principal); H92.01 Otalgia, right ear; F41.9 Anxiety disorder, unspecified

== ENCOUNTER → 2024-06-08 11:38 | Outpatient (BNVA) | payer MEDICARE, SELFPAY | PROVIDERS: PCP Family Medicine; Visit Provider Family Medicine | DX: I10 Essential (primary) hypertension (principal); H92.01 Otalgia, right ear; F41.9 Anxiety disorder, unspecified | CPT/HCPCS: 96127; 99212 ==

== ENCOUNTER 2024-10-13 13:43 | Outpatient (AMB) | payer MEDICARE, SELFPAY ==
--- NOTE | 2024-10-13 13:47 | A.OFFPC_ITS ---
Vital Signs 10/13/24 13:50 Height 5 ft 10 in Weight 187 lb 2 oz BMI 26.8 BP 134/81 Blood Pressure Location Rt brachial Position Sitting Respiration 16 Pulse 79 Pulse Source Pulse Oximeter Temp 97.7 F Temp Source Oral Pulse Oximetry (%) 100 Oxygen Delivery Method Room Air Intake Visit Reasons: f/u hypertension, chronic conditions Intake Note: patient here for follow up on HTN and chronic conditions Synthetic Chemist Required: No Is last menstrual period known: No Post menopausal: No Patient : No Allergies Penicillins Allergy (Mild, Verified 10/13/24 13:48) Hives soy Allergy (Mild, Verified 10/13/24 13:48) vomiting, headache gluten Allergy (Mild, Uncoded 01/12/24 12:40) stomach pain, brain fog Medication List - Last Reconciled 10/13/24 by Keyon Man MD alprazolam (Xanax) 2 mg PO DAILY 30 days atorvastatin 40 mg PO DAILY Bifidobacterium infantis (Align (B.infantis)) 4 mg PO DAILY colestipol 2 grams PO DAILY duloxetine 60 mg PO DAILY 90 days fluticasone propionate 50 mcg/actuation (Flonase Allergy Relief) 1 spray intranasal Q12H 30 days folic acid 0.4 mg PO DAILY 90 days losartan 50 mg PO DAILY 90 days pantoprazole 40 mg PO DAILY 90 days Tobacco use date assessed: 10/13/24 Fall risk assessment: No Falls in past year Last assessed Fall Risk: 10/13/24 Dental Screening Dental Screen Date: 10/13/24 Did you have a dental visit in the last 12 months?: Yes Did you have a dental problem in the last 6 months where you did not have access to dental care?: No Was dental information given to patient?: Patient has dentist HPI f/u hypertension, chronic conditions HPI Details 68 y/o female presents to f/u HTN, chron ic conditions. Blood pressure today 134/81, 79p. She is on losartan 50mg daily. Pt reports worsening GERD symptoms. She is followed by GI. [facility] Medical History History of liver cancer Sacral nerve stimulator present Liver cancer Colon cancer Surgical History H/O resection of liver Social History Household Members: Children Housing: House Are you a primary ambulatory care nurse to a significant other at home: No Do you presently have visiting nurse or other home services: No 75 years or older and lives alone: No Alcohol intake: current Comment: a couple Patient Tobacco Use Status: Former Tobacco user e-Cigarette/Vaping Use: Never Used Patient : No service: No Current occupational status: retired Cognitive needs: No Hearing needs: No Vision needs: No Questionnaire PHQ-9 Over the last 2 weeks, how often have you been bothered by any of the following problems? 1. Little interest or pleasure in doing things: not at all 2. Feeling down, depressed, or hopeless: not at all 3. Trouble falling or staying asleep, or sleeping too much: not at all 4. Feeling tired or having little energy: not at all 5. Poor appetite or overeating: not at all 6. Feeling bad about yourself - or that you are a failure or have let yourself or your family down: not at all 7. Trouble concentrating on things, such as reading the newspaper or watching television: not at all 8. Moving or speaking so slowly that other people could have noticed. Or the opposite - being so fidgety or restless that you have been moving around a lot more than usual: not at all 9. Thoughts that you would be better off or of hurting yourself in some way: not at all Total score: 0 Depression Screening Interpretation: Negative Depression Screening Done: Yes 49489 - PHQ-9 Billing: Yes Source: Developed by Drs. Tung Freeman, Cara Mohan, Santos Anderson and colleagues, with an educational ramya from [employer]. Thrive Questionnaire Date Thrive assessed: 10/13/24 I am a: Patient What is your living situation today?: I have a steady place to live Within the past 12 months, did the food you bought not last and you didn't have the money to get more?: Never true Within the past 12 months, did you worry whether your food would run out before you got money to buy more?: Never true Do you have trouble paying for medicines?: No Do you have trouble getting transportation to medical appointments?: No Do you have trouble paying your heating and electricity bill?: No Do you have trouble taking care of your child, family member or friend?: No Do you have trouble with day-to-day activities such as bathing, preparing meals, shopping, managing finances, etc.?: No Are you currently unemployed and looking for a job?: No Are you interested in more education?: No Please select the resources that you would like help with: None Currently or been in a relationship where the following occur: No concerns re ported THRIVE Score: 0 JULIEN-7 AMB Questionnaire JULIEN-7 Date JULIEN - 7 assessed: 10/05/23 Source: Developed by Drs. Tung Freeman, Cara Mohan, Santos Anderson and colleagues, with an educational ramya from [employer]. Review of Systems Const Denies chills, Denies fatigue, Denies fever(s), Denies headache(s) and Denies weakness ENT Denies dizziness and Denies headache(s) Card Denies dyspnea Resp Denies cough, Denies dyspnea, Denies wheezing and Denies other (shortness of breath) Musc Denies numbness and Denies tingling Neuro Denies dizziness, Denies headache(s), Denies numbness, Denies tingling and Denies weakness Psych Denies anxiety and Denies depression Endo Denies fatigue Aller/Immun Denies wheezing Physical exam (Primary Care) Vital Signs: Last Vital Signs Temp 97.7 F 10/13/24 13:50 Pulse 79 10/13/24 13:50 Resp 16 10/13/24 13:50 BP 134/81 10/13/24 13:50 Pulse Ox 100 10/13/24 13:50 Oxygen Delivery Method Room Air 10/13/24 13:50 BMI result Body Mass Index 26.8 Tobacco/Smoking Status: Tobacco use Status Tobacco use date assessed 10/13/24 10/13/24 13:51 Patient Tobacco Use Status Former Tobacco user 10/13/24 13:51 e-Cigarette/Vaping Use Never Used 10/13/24 13:51 PHQ-9: PHQ-9 Score PHQ-9: Total score 0 10/13/24 13:51 Depression Screening Interpretation: Negative Thrive Assessment: Date of Thrive Assessment Date Thrive assessed 10/13/24 10/13/24 13:51 Currently or been in a relationship where the following occur: No concerns reported Const General: well developed; No acute distress Nutritional Appearance: well nourished Orientation/consciousness: patient oriented x3 HENMT Head: Yes normocephalic and Yes atraumatic Eyes General: appearance normal, both eyes and all related structures Pupils: Equal, round and reactive pupils present EOM: EOMs intact bilaterally Resp Effort & Inspection: normal respiratory effort Neuro General: patient oriented x3 and gait normal Cranial nerves: Yes Equal, round and reactive pupils present Psych Affect: normal affect Coding Level of Care Code Est Pt Level 4 (04819) Diagnoses Hypertension I10 GERD (gastroesophageal reflux disease) K21.9 Foreign body in right ear T16.1XXA Additional Codes PHQ-9 - 09983 - PHQ-9 Billing: Yes ([id number]) Assessment & Plan Assessment & Plan (1) Hypertension: Code(s): I10 - Essential (primary) hypertension Category: Medical Plan: Blood?pressure?is?controlled.??Goal?is?less?than?140/90 Continue?current?medication (2) GERD (gastroesophageal reflux disease): Code(s): K21.9 - Gastro-esophageal reflux disease without esophagitis Category: Medical Plan: Worsening?GERD?symptoms. Followed?by??gastroenterology?in?referred?back?to?her Continue?pantoprazole Can?temporarily?use famotidine?as?well Avoid?trigger?foods,?over?filling?or?eating?too?close?to?bedtime (3) Foreign body in right ear: Code(s): T16.1XXA - Foreign body in right ear, initial encounter Category: Medical Plan: Patient?was?referred?to?ENT?due?to?discomfort?in?right?ear. Metal?foreign?body?in?right?ear?ENT recommends no?intervention?as?it?was?felt?that?this?would?cause?more?العلي rm?than?good?at?this?point?in?time. Discussed?with?patient?that?should?she?ever?need?an?MRI?she?should?notify?the?pr ovider. If MRI?is?essential,?she?may?need?to?have?this?removed?1st. Orders: Referrals Gastroenterology Referral K21.9 - Gastro-esophageal reflux disease without esophagitis Medications: New famotidine 20 mg PO BID 30 days 60 tabs 1RF
[2024-10-13 13:50] VITALS: BP 134/81; PULSE 79; RESP 16; TEMP 36.5; O2SAT 100; BMI 26.8
--- OUTSIDE RECORDS SUMMARY | 2024-10-13 16:49 | XMS_ITS | Clinical Summary ---
Author Organization [facility] [address] [facility] Address [address] [place] [address] Phone Care Team Providers Care Quality Control Operator Name Role Phone Keyon Man MD Primary Care Provider [phone] Allergies Active Allergy Reactions Criticality Noted Date Comments Gluten Nausea And Vomiting,Headache High 025 Penicillins Unknown 08/03/2024 As child Medications losartan (COZAAR) 50 mg tablet Take 1 tablet (50 mg total) by mouth 1 (one) time each day. 06/06/2024 Active DULoxetine (CYMBALTA) [address] capsule Take 1 capsule (60 mg total) by mouth 1 (one) time each day. 05/20/2024 Active ALPRAZolam (XANAX) 1 mg tablet Take 1 tablet (1 mg total) by mouth 3 (three) times a day if needed. 11/27/2023 Active atorvastatin (LIPITOR) 40 mg tablet Take 1 tablet (40 mg total) by mouth 1 (one) time each day. 06/06/2024 Active folic acid (FOLVITE) 400 mcg tablet Take 1 tablet (0.4 mg total) by mouth 1 (one) time each day. 06/05/2024 Active pantoprazole (PROTONIX) 40 mg EC tablet Take 1 tablet (40 mg total) by mouth 1 (one) time each day. 05/20/2024 Active colestipoL (COLESTID) 1 gram tabletIndication s:Diarrhea, unspecified type Take 1 tablet (1 g total) by mouth 1 (one) time each day. 90 each 2 09/13/2024 12/13/19 25 Active Encounters Date Type Department Care Team Description 09/13/2024 Telephone Gastroenterology - [address] [facility] [address] [place] [id number] Janessa Hanson MD 08/11/2024 12:59 PM EST Anesthesia Event [facility] Endoscopy [address] [place] [address] Tra Carpenter MD 08/11/2024 12:03 PM EST - 08/11/2024 11:59 PM EST Hospital Encounter [facility] End[facility] [address] [place] [address] Janessa Hanson MD Elliott, Barbara J, CRNA Korobkov, Vitaliy, Colon cancer screening Discharge Disposition: Home or Self Care from Last 3 Months Surgical History Surgery Date Site/Laterality Comments COLONOSCOPY ESOPHAGOGASTRODUODENOSCOPY Medical History Medical History Date Comments Colon cancer ([facility] V24, [facility] V28) Calles esophagus Hyperlipidemia Hypertension GERD (gastroesophageal reflux disease) Social History Tobacco Use Types Packs/Day Years Used Date Smoking Tobacco: Never Smokeless Tobacco: Never Tobacco Cessation:Counseling Given: Not Answered Alcohol Use Standard Drinks/Week Comments Never 0 (1 standard drink = 0.6 oz pur e alcohol) Interpersonal Safety Answer Date Record ed Physical Abuse 08/11/2024 Verbal Abuse 08/11/2024 Comments Unknown Sex and Gender Information Value Date Recorded Sex Assigned at Female 08/11/2024 11:54 AM EST Legal Sex Female 11:02 AM EDT Gender Identity Female 08/11/2024 11:54 AM EST Sexual Orientation Straight 08/11/2024 11 :54 AM EST Obstetrics History Last Filed Vital Signs Vital Sign Reading Time Taken Comments Blood Pressure 114/80 08/11/2024 1:41 PM EST Pulse 74 08/11/2024 1:41 PM EST Temperature 36.7 ??C (98 ??F) 08/11/2024 12:40 PM EST Respiratory Rate 16 08/11/2024 1:41 PM EST Oxygen Saturation 96% 08/11/2024 1:41 PM EST Inhaled Oxygen Concentration - - Weight 80.7 kg (178 lb) 08/11/2024 12:40 PM EST Height 177.8 cm (5' 10 ) 08/11/2024 12:40 PM EST Body Mass Index 25.54 08/11/2024 12:40 PM EST Plan of Treatment Health Maintenance Due Date Last Done Comments Breast Cancer Screening 1955 DTaP,Tdap,and Td Vaccines (1 - Tdap) 1972 Pneumococcal Vaccine: 50+ Years (1 of 1 - PCV) 11/05/2003 Zoster Vaccines (1 of 2) 11/05/2003 COVID-19 Vaccine (3 - Mixed Product risk series) 04/20/2023 03/23/2023, 04/20/2022 Cholesterol Screening (Lipid Panel) 01/29/2024 Depression Screening 01/29/2024 Hepatitis C Screening 01/29/2024 Medicare Annual Wellness Visit 01/29/2024 Osteoporosis Screening (Bone Density Screening) 01/29/2024 Social Influencers of Health Screening 01/29/2024 Influenza Vaccine (Season Ended) 2025 Falls Risk Assessment 08/11/2025 08/11/2024 RSV Immunization Adult Patients (1 - 1-dose 75+ series) 2028 Colorectal Cancer Screening: Colonoscopy 08/11/2034 08/11/2024 HIB Vaccines Aged Out No longer eligi ble based on patient's age to complete this topic HPV Vaccines Aged Out No longer eligi ble based on patient's age to complete this topic Hepatitis A Vaccines Aged Out No long er eligible based on patient's age to complete this topic Hepatitis B Vaccines Aged Out No long er eligible based on patient's age to complete this topic IPV Vaccines Aged Out No longer eligi ble based on patient's age to complete this topic MMR Vaccines Aged Out No longer eligi ble based on patient's age to complete this topic Meningococcal ACWY Vaccine Aged Out N o longer eligible based on patient's age to complete this topic Meningococcal B Vaccine Aged Out No l onger eligible based on patient's age to complete this topic RSV Immunization Patients Under 20 months Aged Out No longer eligible b ased on patient's age to complete this topic Varicella Vaccines Aged Out No longer eligible based on patient's age to complete this topic Procedures Procedure Name Priority Date/Time Associated Diagnosis Comments COLONOSCOPY Routine 08/11/2024 1:20 PM EST Colon cancer screening from Last 3 Months Results * COLONOSCOPY Anesthesia - MAC; [facility] ENDOSCOPY (08/11/2024 1:20 PM EST) Anatomical Region Laterality Modality Endoscopy 08/11/2024 12:5 3 PM EST Impressions 08/11/2024 1:19 PM EST - The examined portion of the ileum was normal. ? - Patent end-to-side ileo-colonic anastomosis, ? characterized by healthy appearing mucosa. ? - Scar at the hepatic flexure. ? - Diverticulosis in the sigmoid colon. ? - Internal hemorrhoids. ? - No specimens collected. Recommendation: ?- Repeat colonoscopy in 5 years for surveillance. Narrative 08/11/2024 1:19 PM EST [facility] GI Patient Name: Eileen Grover Procedure Date: 08/11/2024 12:53 PM Date of : 1955 Age: 68 Gender: Female Note Status: Finalized Attending MD: Janessa Hanson MD, Procedure Date No Time: 08/11/2024 Procedure: ? Colonoscopy Indications: ? High risk colon cancer surveillance: Personal history ? of colon cancer Providers: ? Janessa Hanson MD Referring MD: ?Keyon Man MD Medicines: ? Propofol per Anesthesia Complications: ? No immediate complications. Estimated Blood Loss: ? Estimated blood loss: none. Procedure: ? Pre-Anesthesia Assessment: ? - ASA Grade Assessment: II - A patient with mild ? systemic disease. ? After I obtained informed consent, the scope was ? passed under direct vision. Throughout the procedure, ? the patient's blood pressure, pulse, and oxygen ? saturations were monitored continuously.The ? Colonoscope was introduced through the anus and ? advanced to the ileocolonic anastomosis. The ? colonoscopy was performed without difficulty. The ? patient tolerated the procedure well. The quality of ? the bowel preparation was excellent. Findings: ?The perianal and digital rectal examinations were ? normal. ? The cj-terminal ileum appeared normal. ? There was evidence of a prior end-to-side ileo-colonic ? anastomosis in the ascending colon. This was patent ? and was characterized by healthy appearing mucosa. The ? anastomosis was traversed. ? A large scar was found at the hepatic flexure. The ? scar tissue was healthy in appearance. ? A few small-mouthed diverticula were found in the ? sigmoid colon. ? Internal hemorrhoids were found during retroflexion. ? The hemorrhoids were Grade I (internal hemorrhoids ? that do not prolapse). Procedure Code(s): ? --- Professional --- ? G0105, Colorectal cancer screening; colonoscopy on ? individual at high risk Diagnosis Code(s): ? --- Professional --- ? Z85.038, Personal history of other malignant neoplasm ? of large intestine ? Z98.0, Intestinal bypass and anastomosis status ? K57.30, Diverticulosis of large intestine without ? perforation or abscess without bleeding CPT copyright 2020 [employer]. All rights reserved. The codes documented in this report are preliminary and upon director audience marketing review may be revised to meet current compliance requirements. Janessa Hanson MD 08/11/2024 1:18:55 PM This report has been signed electronically.Janessa Hanson MD Number of Addenda: 0 Note Initiated On: 08/11/2024 12:53 PM Scope In: Scope Out: ? Endoscopy Department at [facility] - [address] [place] [address], ? [place] [address] Procedure Note Janessa Hanson MD - 08/11/2024 [facility] GI Patient Name: Eileen Grover Procedure Date: 08/11/2024 12:53 PM Date of : 1955 Age: 68 Gender: Female Note Status: Finalized Attending MD: Janessa Hanson MD, Procedure Date No Time: 08/11/2024 Procedure: Colonoscopy Indications: High risk colon cancer surveillance: Personalhistory of colon cancer Providers: Janessa Hanson MD Referring MD: Keyon Man MD Medicines: Propofol per Anesthesia Complications: No immediate complications. Estimated Blood Loss: Estimated blood loss: none. Procedure: Pre-Anesthesia Assessment: - ASA Grade Assessment: II - A patient with mild systemic disease. After I obtained informed consent, the scope was passed under direct vision. Throughout theprocedure, the patient's blood pressure, pulse, and oxygen saturations were monitored continuously.The Colonoscope was introduced through the anus and advanced to the ileocolonic anastomosis. The colonoscopy was performed without difficulty. The patient tolerated the procedure well. The qualityof the bowel preparation was excellent. Findings: The perianal and digital rectal examinations were normal. The cj-terminal ileum appeared normal. There was evidence of a prior mwb-ov-[id number]-colonic anastomosis in the ascending colon. This was patent and was characterized by healthy appearing mucosa.The anastomosis was traversed. A large scar was found at the hepatic flexure. The scar tissue was healthy in appearance. A few small-mouthed diverticula were found in the sigmoid colon. Internal hemorrhoids were found duringretroflexion. The hemorrhoids were Grade I (internal hemorrhoids that do not prolapse). Procedure Code(s): --- Professional --- G0105, Colorectal cancer screening; colonoscopy on individual at high risk Diagnosis Code(s): --- Professional --- Z85.038, Personal history of other malignantneoplasm of large intestine Z98.0, Intestinal bypass and anastomosis status K57.30, Diverticulosis of large intestine without perforation or abscess without bleeding CPT copyright 2020 [employer]. All rights reserved. The codes documented in this report are preliminary and upon director audience marketing reviewmay be revised to meet current compliance requirements. Janessa Hanson MD 08/11/2024 1:18:55 PM This report has been signed electronically.Janessa Hanson MD Number of Addenda: 0 Note Initiated On: 08/11/2024 12:53 PM Scope In: Scope Out: Endoscopy Department at [facility] - [address] [place] [id number] IMPRESSION: - The examined portion of the ileum was normal. - Patent end-to-side ileo-colonic anastomosis, characterized by healthy appearing mucosa. - Scar at the hepatic flexure. - Diverticulosis in the sigmoid colon. - Internal hemorrhoids. - No specimens collected. Recommendation: - Repeat colonoscopy in 5 years for surveillance. Janessa Hanson MD GI~PROCEDURE ORDERABLES Final Result from Last 3 Months Insurance [employer] MED[employer]ARE [employer]VANTAGE Care Teams Quality Control Operator Relationship Specialty Start Date End Date Keyon Man MD [address] [place] [address] PCP - General Family Medicine 08/11/24
== END 2024-10-13 14:31 | disposition home or self-care (01) ==
LOC: HO.HMCFM 13:43
PROVIDERS: PCP Family Medicine; Visit Provider Family Medicine
DX: I10 Essential (primary) hypertension (principal); K21.9 Gastro-esophageal reflux disease without esophagitis; T16.1XXA Foreign body in right ear, initial encounter

== ENCOUNTER → 2024-10-13 13:43 | Outpatient (BNVA) | payer MEDICARE, SELFPAY | PROVIDERS: PCP Family Medicine; Visit Provider Family Medicine | DX: I10 Essential (primary) hypertension (principal); K21.9 Gastro-esophageal reflux disease without esophagitis; T16.1XXA Foreign body in right ear, initial encounter; W44.9XXA Unspecified foreign body entering into or through a natural orifice, initial encounter; Y93.9 Activity, unspecified; Y92.9 Unspecified place or not applicable; Y99.9 Unspecified external cause status; Z79.899 Other long term (current) drug therapy | CPT/HCPCS: 96127; 99212 ==

== ENCOUNTER 2024-12-01 10:09 | Outpatient (REF) | payer MEDICARE, SELFPAY ==
[2024-12-01 11:28] LABS: MANUAL DIFF FLAG NO
[2024-12-01 11:48] LABS: Basophils Percent Auto 0.5 % (0-2); Eosinophils Absolute Auto 0.1 X10*3/uL (0.0-0.4); Eosinophils Percent Auto 2.5 % (0-4); Hemoglobin 13.2 g/dl (12.0-16.0); Imm Gran Abs Auto 0.03 X10*3/uL (0.00-0.03); Imm Gran Pct Auto 0.7 % (0.0-0.4); Lymphocytes Absolute Auto 1.2 X10*3/uL (1.2-4.9); Mean Corpuscular HGB Conc 32.2 g/dl (31.0-35.0); Mean Corpuscular Hemoglobin 29.7 pg (27.0-33.0); Mean Corpuscular Volume 92.3 fL (80.0-98.0); Mean Platelet Volume 10.6 fL (9.4-12.3); Monocytes Absolute Auto 0.3 X10*3/uL (0.1-1.2); Monocytes Percent Auto 7.6 % (2-11); Neutrophils Absolute Auto 2.7 x10*3/uL (2.0-8.3); Neutrophils Percent Auto 61.7 % (45-73); Platelet Count 255 X10*3/uL (160-400); Red Blood Count 4.44 X10*6/uL (4.20-5.50); Red Cell Distribution Width 13.6 % (11.0-16.0); White Blood Count 4.3 X10*3/uL (4.8-10.8)
[2024-12-01 12:21] LABS: Alanine Aminotransferase 24 U/L (0-31); Albumin Level 4.9 g/dL (3.5-5.0); Alkaline Phosphatase 99 U/L (39-117); Anion Gap 13 (12-20); Aspartate Amino Transferase 25 U/L (5-31); Blood Urea Nitrogen 10 mg/dL (9-16); Calcium 9.9 mg/dL (8.4-10.2); Carbon Dioxide 27 mmol/L (22-29); Chloride 109 mmol/L (96-108); Cholesterol 195 mg/dL (<200); Estimated Glomerular Filt Rate > 60; Glucose Fasting 114 mg/dL (60-99); HDL Cholesterol 63 mg/dL (>40); LDL Cholesterol Calculated 112 mg/dL (<100); Potassium 3.8 mmol/L (3.3-5.1); Sodium 145 mmol/L (135-145); Total Protein 7.6 g/dL (6.5-8.0); Triglycerides 102 mg/dL (<150)
[2024-12-01 12:42] LABS: TSH reflex Free T4 0.95 uIU/mL (0.32-4.0)
[2024-12-01 14:57] LABS: Appearance Urine Cloudy; Color Urine Yellow; Glucose Urine UA Negative (Negative); Leukocyte Esterase Urine Large (3+) (Negative); Nitrite Urine Positive (Negative); PH 5.5 (5.0-9.0); Specific Gravity - Urine 1.015 (1.005-1.025); UMIC TRIGGER UACC YES; Urine Blood Trace (Negative); Urine Ketones Negative (Negative); Urine Protein Trace mg/dL (Neg-Trace)
[2024-12-01 15:30] LABS: Bacteria Urine 4+ (None Seen); Hyaline Casts Urine 0-2 /LPF (0-2); RBC Urine 0-2 /HPF (0-2); Squamous Epithelial Cell Urine >20 /HPF (0-2); UACC Culture Trigger YES; WBC Urine >50 /HPF (0-5)
[2024-12-01 15:57] LABS: Creatinine Urine 166.06 mg/dL; Microalbum/Creatinine Ratio Ur 20.4 ug/mg cr (<30)
== END 2024-12-01 10:10 | disposition home or self-care (01) ==
LOC: HO.WFDLDS 10:09
PROVIDERS: Visit Provider Family Medicine
DX: Z00.00 Encounter for general adult medical examination without abnormal findings (principal); I10 Essential (primary) hypertension; R30.0 Dysuria
CPT/HCPCS: 36415; 80053; 80061; 81001; 82043; 82570; 84443; 85025; 87086

== ENCOUNTER 2024-12-09 08:54 | Outpatient (AMB) | payer MEDICARE, SELFPAY ==
--- NOTE | 2024-12-09 09:08 | MHC.PC.OV ---
Vital Signs 12/09/24 09:14 Height 5 ft 10 in Weight 181 lb 2 oz BMI 26.0 BP 106/60 Blood Pressure Location Lt brachial Position Sitting Respiration 16 Pulse 78 Pulse Source Pulse Oximeter Temp 97.8 F Temp Source Oral Intake Visit Reasons: annual physical Intake Note: patient is scheduled for cpe Regulatory Lead Required: No Allergies Penicillins Allergy (Mild, Verified 12/09/24 09:12) Hives soy Allergy (Mild, Verified 12/09/24 09:12) vomiting, headache gluten Allergy (Mild, Uncoded 01/12/24 12:40) stomach pain, brain fog Medication List - Last Reconciled 12/09/24 by Keyon Man MD alprazolam (Xanax) 2 mg PO DAILY 30 days atorvastatin 40 mg PO DAILY 90 days Bifidobacterium infantis (Align (B.infantis)) 4 mg PO DAILY colestipol 2 grams PO DAILY duloxetine 60 mg PO DAILY 90 days famotidine 20 mg PO BID 30 days fluticasone propionate 50 mcg/actuation (Flonase Allergy Relief) 1 spray intranasal Q12H 30 days folic acid 0.4 mg PO DAILY 90 days losartan 50 mg PO DAILY 90 days nitrofurantoin monohyd/m-cryst 100 mg (Macrobid) 100 mg PO BID 7 days pantoprazole 40 mg PO DAILY 90 days Tobacco use date assessed: 12/09/24 Fall risk assessment: No Falls in past year Last assessed Fall Risk: 12/09/24 Dental Screening Dental Screen Date: 12/09/24 Did you have a dental visit in the last 12 months?: Yes Did you have a dental problem in the last 6 months where you did not have access to dental care?: No Was dental information given to patient?: Patient has dentist HPI annual physical HPI Details 69 y/o female presents for an extended exam with f/u labs and health maint. Labs drawn 12/01/24. Reviewed labs with pt. Fasting glucose 114. Denies any FHx of diabetes. Triglycerides 102. TC 195. LDL 112. HDL 63. She is on artovastatin 40mg daily. 4+ urine bacteria seen. She had denied any urinary symptoms. HPI Comments History of Present Illness Details Documentation assistance for Keyon aMn MD, was provided by Efra Cheng, Car Sales Consultant on 12/09/2024 at 9:52 AM EST. I, Dr. Man, have read, observed, and verified documentation. [facility], [facility] Medical History History of liver cancer Sacral nerve stimulator present Liver cancer Colon cancer Surgical History H/O resection of liver Social History Household Members: Children Housing: House Are you a primary healthcare consulting manager to a significant other at home: No Do you presently have visiting nurse or other home services: No 75 years or older and lives alone: No Alcohol intake: current Comment: a couple Patient Tobacco Use Status: Former Tobacco user e-Cigarette/Vaping Use: Never Used service: No Current occupational status: retired Cognitive needs: No Hearing needs: No Vision needs: No Questionnaire PHQ-9 Over the last 2 weeks, how often have you been bothered by any of the following problems? 1. Little interest or pleasure in doing things: not at all 2. Feeling down, depressed, or hopeless: not at all 3. Trouble falling or staying asleep, or sleeping too much: not at all 4. Feeling tired or having little energy: not at all 5. Poor appetite or overeating: not at all 6. Feeling bad about yourself - or that you are a failure or have let yourself or your family down: not at all 7. Trouble concentrating on things, such as reading the newspaper or watching television: not at all 8. Moving or speaking so slowly that other people could have noticed. Or the opposite - being so fidgety or restless that you have been moving around a lot more than usual: not at all 9. Thoughts that you would be better off or of hurting yourself in some way: not at all Total score: 0 Depression Screening Interpretation: Negative Depression Screening Done: Yes 63074 - PHQ-9 Billing: Yes Source: Developed by Drs. Tung Freeman, Cara Mohan, Santos Anderson and colleagues, with an educational ramya from [employer]. Thrive Questionnaire Date Thrive assessed: 12/09/24 I am a: Patient What is your living situation today?: I have a steady place to live Within the past 12 months, did the food you bought not last and you didn't have the money to get more?: Never true Within the past 12 months, did you worry whether your food would run out before you got money to buy more?: Never true Do you have trouble paying for medicines?: No Do you have trouble getting transportation to medical appointments?: No Do you have trouble paying your heating and electricity bill?: No Do you have trouble taking care of your child, family member or friend?: No Do you have trouble with day-to-day activities such as bathing, preparing meals, shopping, managing finances, etc.?: No Are you currently unemployed and looking for a job?: No Are you interested in more education?: No Please select the resources that you would like help with: None Currently or been in a relationship where the following occur: No concerns reported THRIVE Score: 0 AUDIT C Alcohol Use Questionnaire (AUDIT-C) 1. How often do you have a drink containing alcohol?: 2-3 times a week 2. How many drinks containing alcohol do you have on a typical day when you are drinking?: 1 or 2 3. How often do you have six or more drinks on one occasion?: Never Total Score: 3 Score Reviewed/Action Taken: Yes JULIEN-7 AMB Questionnaire JULIEN-7 Date JULIEN - 7 assessed: 10/05/23 Feeling nervous, anxious, or on edge: 0 = Not at all Not being able to stop or control worryin = Not at all Worrying too much about different things: 0 = Not at all Trouble relaxin = Not at all Being so restless that it is hard to sit still: 0 = Not at all Becoming easily annoyed or irritable: 0 = Not at all Feeling afraid as if something awful might happen: 0 = Not at all Total JULIEN-7 score (0-4 normal; 5-9 mild; 10-14 moderate; 15-21 severe): 0 Source: Developed by Drs. Tung Freeman, Cara Mohan, Santos Anderson and colleagues, with an educational ramya from [employer]. JULIEN-7 Assessment Billing JULIEN-7 Assessment Tool: JULIEN-7 Assessment 10352 Review of Systems Const Denies chills, Denies fatigue, Denies fever(s), Denies headache(s) and Denies weakness Eyes Denies change in vision ENT Denies dizziness, Denies headache(s), Denies hearing loss, Denies nasal congestion, Denies sinus pain, Denies sinus pressure and Denies sore throat Card Denies chest pain, Denies lightheadedness, Denies dyspnea and Denies other (palpitations) Resp Denies cough, Denies dyspnea and Denies wheezing GI Denies abdominal pain, Denies melena, Denies hematochezia, Denies change in bowel habits, Denies dyspepsia and Denies nausea Denies hematuria and Denies dysuria Musc Denies abnormal gait, Denies myalgias, Denies arthralgias, Denies numbness and Denies tingling Skin/Breast Denies rash, Denies unusual bruising and Denies wounds Neuro Denies abnormal gait, Denies dizziness, Denies headache(s), Denies memory loss, Denies numbness, Denies Sensory deficit (Neuro), Denies tingling and Denies weakness Psych Denies anxiety, Denies depression and Denies memory loss Endo Denies cold intolerance, Denies fatigue, Denies heat intolerance, Denies polydipsia and Denies polyuria [place]/Lymph Denies easy bleeding and Denies easy bruising Aller/Immun Denies wheezing Physical exam (Primary Care) Vital Signs: Last Vital Signs Temp 97.8 F 12/09/24 09:14 Pulse 78 12/09/24 09:14 Resp 16 12/09/24 09:14 BP 106/60 12/09/24 09:14 BMI result Body Mass Index 26.0 Tobacco/Smoking Status: Tobacco use Status Tobacco use date assessed 12/09/24 12/09/24 09:19 Patient Tobacco Use Status Former Tobacco user 12/09/24 09:19 e-Cigarette/Vaping Use Never Used 12/09/24 09:19 PHQ-9: PHQ-9 Score PHQ-9: Total score 0 12/09/24 09:19 Depression Screening Interpretation: Negative Thrive Assessment: Date of Thrive Assessment Date Thrive assessed 12/09/24 12/09/24 09:19 Currently or been in a relationship where the following occur: No concerns reported Const General: no acute distress, well developed, alert and awake Nutritional Appearance: well nourished Orientation/consciousness: patient oriented x3 HENMT Head: Yes normocephalic and Yes atraumatic Ears: hearing grossly normal bilaterally and TM's normal bilaterally General nose exam: Normal external nose present and Normal nares present Mouth: Normal oral and palatal mucosa present and moist mucous membranes Teeth and gingiva: dentition normal Throat: Yes posterior oropharynx normal Eyes General: appearance normal, both eyes and all related structures Pupils: Equal, round and reactive pupils present and Pupil accommodation reflex normal EOM: EOMs intact bilaterally Neck Neck: Yes normal visual inspection, Yes no lymphadenopathy and Yes trachea midline Thyroid: Thyroid normal Carotids: no bruits Lymphatic: no lymphadenopathy noted Chest Chest palpation & inspection: normal inspection of the chest Resp Effort & Inspection: normal respiratory effort Auscultation: clear to auscultation bilaterally Cardio Rate: regular rate Rhythm: regular rhythm Heart sounds: S1 normal heart sound present, S2 normal heart sound present, no gallops, no murmurs and no rubs Bruits: no abdominal aortic bruits and no carotid bruits GI Palpation (GI): No Abdominal aortic bruit present, Soft to palpation, nontender, No hepatosplenomegaly present and No Rebound tenderness present Auscultation: normal bowel sounds General: Yes no CVA tenderness Back/Spine/Pelvis Back: no CVA tenderness Cervical Spine: cervical ROM normal and No Cervical spine tenderness Thoracic/Lumbar Spine: thoraco-lumbar ROM normal, No pain with thoraco-lumbar ROM, No thoracic spinal tenderness and No lumbar spinal tenderness Skin Lesions: no lesions Rashes: no rashes Trauma: no lacerations or abrasions Wounds: no wounds Nails: normal Neuro General: patient oriented x3 Cranial nerves: Yes Equal, round and reactive pupils present Cognition (Neuro): normal cognition Gait exam (Neuro): Normal gait present Motor exam (neuro): 5/5 motor strength present throughout Sensory Exam: No Sensory deficit (Neuro) Deep tendon reflexes (DTR's): Right patellar reflex intensity grade: 2+ and Left patellar reflex intensity grade: 2+ Extrem General: Yes normal to inspection and No edema Psych Appearance: grossly normal Affect: normal affect Attitude: cooperative Thought process: Normal thought process present Coding Level of Care Code Est Pt Level 4 (08899) Diagnoses Hypertension I10 Hyperlipidemia E78.5 Elevated fasting glucose R73.01 Breast cancer screening by mammogram Z12.31 Screening for colon cancer Z12.11 Screening for osteoporosis Z13.820 Adult general medical exam Z00.00 Additional Codes JULIEN-7 Assessment Billing - JULIEN-7 Assessment Tool: JULIEN-7 Assessment 80852 ([id number]) PHQ-9 - 17007 - PHQ-9 Billing: Yes ([id number]) Assessment & Plan Assessment & Plan (1) Hypertension: Code(s): I10 - Essential (primary) hypertension Category: Medical Plan: Blood?pressure?is?controlled.??Goal?is?less?than?140/90 Continue?current?medication (2) Hyperlipidemia: Code(s): E78.5 - Hyperlipidemia, unspecified Category: Medical Plan: LDL?cholesterol?mildly?elevated?but?patient?notes?that?she?has?been?out?of?her?atorvastatin?for?about?a?week?prior?to?getting?labs?drawn Will?recheck?this?with?next?blood?draw (3) Elevated fasting glucose: Code(s): R73.01 - Impaired fasting glucose Category: Medical Plan: Elevated?fasting?blood?sugar Prior?measurement?was?within?normal?range Will?recheck?this (4) Breast cancer screening by mammogram: Code(s): Z12.31 - Encounter for screening mammogram for malignant neoplasm of breast Category: Medical Plan: Mammogram?up-to-date?the?she?will?continue?annual?screening (5) Screening for colon cancer: Code(s): Z12.11 - Encounter for screening for malignant neoplasm of colon Category: Medical Plan: Recent?colonoscopy?and?recommended?5?year?follow-up?with? Up-to-date (6) Screening for osteoporosis: Code(s): Z13.820 - Encounter for screening for osteoporosis Category: Medical Plan: Due?for?screening?for?osteoporosis Bone?density?Ordered (7) Adult general medical exam: Code(s): Z00.00 - Encounter for general adult medical examination without abnormal findings Category: Medical Plan: 69-year-old?female?presents?for?extended?exam. Encouraged?healthy?diet?with?active?lifestyle?and?plenty?of?exercise Orders: Orders Comprehensive [place]. Panel Fast Today Z00.00 - Encounter for general adult medical examination without abnormal findings Lipid Panel Today E78.5 - Hyperlipidemia, unspecified, Z00.00 - Encounter for general adult medical examination without abnormal findings Medications: Refilled alprazolam (Xanax) 2 mg PO DAILY 30 days 30 tabs 0RF
[2024-12-09 09:14] VITALS: BP 106/60; PULSE 78; RESP 16; TEMP 36.6; BMI 26.0
--- OUTSIDE RECORDS SUMMARY | 2024-12-09 09:16 | XMS_ITS | Clinical Summary ---
Author Organization [facility] [address] [facility] Address [address] [place] [address] Phone Care Team Providers Care Application Coordinator Name Role Phone Keyon Man MD Primary Care Provider Allergies Active Allergy Reactions Criticality Noted Date Comments Gluten Nausea And Vomiting,Headache High 025 Penicillins Unknown 08/03/2024 As child Medications losartan (COZAAR) 50 mg tablet Take 1 tablet (50 mg total) by mouth 1 (one) time each day. 4 Active DULoxetine (CYMBALTA) [address] capsule Take 1 capsule (60 mg total) by mouth 1 (one) time each day. 4 Active ALPRAZolam (XANAX) 1 mg tablet Take 1 tablet (1 mg total) by mouth 3 (three) times a day if needed. 4 Active atorvastatin (LIPITOR) 40 mg tablet Take 1 tablet (40 mg total) by mouth 1 (one) time each day. 4 Active folic acid (FOLVITE) 400 mcg tablet Take 1 tablet (0.4 mg total) by mouth 1 (one) time each day. 4 Active pantoprazole (PROTONIX) 40 mg EC tablet Take 1 tablet (40 mg total) by mouth 1 (one) time each day. 4 Active colestipoL (COLESTID) 1 gram tabletIndicatio ns:Diarrhea, unspecified type Take 1 tablet (1 g total) by mouth 1 (one) time each day. 90 each 2 5 12/13/19 25 Active GaviLyte-C 240-22.72-6.72 -5.84 gram solution TAKE 4,000 ML BY MOUTH 1 TIME FOR 1 DOSE. DRINK 8 OZ EVERY 10-15 MINUTES UNTIL SOLUTION IS GONE 5 Active acetaminophen (Tylenol Extra Strength) 500 mg tablet Take 2 tablets (1,000 mg total) by mouth. 3 Active albuterol HFA (PROAIR HFA ; PROVENTIL HFA ; VENTOLIN HFA) 90 mcg/actuation inhaler INHALE 2 PUFFS EVERY 6 HOURS NEEDED FOR WHEEZING OR SHORTNESS OF BREATH FOR UP TO 30 DAYS. 4 Active azithromycin (ZITHROMAX) 250 mg tablet TAKE 2 TABLETS BY MOUTH TODAY, THEN TAKE 1 TABLET DAILY FOR 4 DAYS DIRECTED 4 Active benzonatate (TESSALON) 100 mg capsule TAKE 2 CAPS BY MOUTH 3 TIMES A DAY NEEDED. DO NOT BREAK,CHEW,DI SSOLVE,CUT OR CRUSH 4 Active fluticasone propionate (FLONASE) 50 mcg/actuation nasal spray USE 1 SPRAY INTO EACH NOSTRIL EVERY 12 HOURS 4 Active ipratropium (ATROVENT) 42 mcg (0.06 %) nasal spray SPRAY 2 SPRAYS INTO EACH NOSTRIL 3 TIMES A DAY FOR 4 DAYS 4 Active oseltamivir (TAMIFLU) 75 mg capsule Take 1 capsule (75 mg total) by mouth 2 (two) times a day. for 5 days 4 Active famotidine (PEPCID) 40 mg tabletIndicatio ns:Gastroesopha geal reflux disease without esophagitis,Bar rett's esophagus without dysplasia Take 1 tablet (40 mg total) by mouth 2 (two) times a day. 180 each 3 5 11/29/19 26 Active famotidine (PEPCID) 20 mg tablet Take 1 tablet (20 mg total) by mouth 2 (two) times a day. 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 Hanson ESOPHAGOGASTRODUODENOSCOPY 10/28/2023 - 11/27/2023 lg HH, Long segment Barretts, negative for dysplasia (3yr) Dr. Hanson Medical History Medical History Date Comments Colon cancer ([facility] V24, [facility] V28) Calles esophagus Hyperlipidemia Hypertension [...] EST Inhaled Oxygen Concentration - - Weight 82.6 kg (182 lb) 11/28/2024 1:38 PM EDT Height 180.3 cm (5' 11 ) 11/28/2024 1:38 PM EDT Body Mass Index 25.38 11/28/2024 1:38 PM EDT Plan of Treatment Upcoming Encounters Date Type Department Care Team (Late st Contact Info) Description 03/01/2025 2:10 PM EDT Office Visit Gastroenterology - [address] [place] [phone] Norma Saucedo PA [address] [place] [address] Health Maintenance Due Date Last Done Comments [...] 01/29/2024 Social Influencers of Health Screening 01/29/2024 Hypertension/CHF/CAD Annual BMP Blood Test 11/29/2024 Influenza Vaccine (Season Ended) 2025 Falls Risk [...] Colon cancer screening from Last 3 Months or Most Recently Relevant to Health Maintenance Results * COLONOSCOPY Anesthesia - MAC; [facility] ENDOSCOPY (08/11/2024 1:20 PM EST) Anatomical [...] for surveillance. Narrative 08/11/2024 1:19 PM EST [facility] GI Patient Name: Eileen Acuna Procedure Date: 08/11/2024 12:53 PM Date of [...] or abscess without bleeding CPT copyright 2020 [employer]. All rights reserved. The codes documented in this report are preliminary and upon leadership program associate review may be revised to meet current compliance requirements. Janessa Hanson MD 08/11/2024 1:18:55 PM This report has been signed electronically.Janessa aHnson MD Number of Addenda: 0 Note Initiated On: 08/11/2024 12:53 PM Scope In: Scope Out: ? Endoscopy Department at [facility] - [address] [place] [address], ? [place] [address] Procedure Note Janessa Hanson MD - 08/11/2024 [facility] GI Patient Name: Eileen Acuna Procedure Date: 08/11/2024 12:53 PM Date of : 1955 Age: 68 Gender: Female Note Status: Finalized Attending MD: Jansesa Hanson MD, Procedure Date No Time: 08/11/2024 [...] normal. There was evidence of a prior yck-bs-srkehyhb-colonic anastomosis in the ascending colon. This was [...] or abscess without bleeding CPT copyright 2020 [employer]. All rights reserved. The codes documented in this report are preliminary and upon leadership program associate reviewmay be revised to meet current compliance requirements. Janessa Hanson MD 08/11/2024 1:18:55 PM This report has been signed electronically.Janessa Hanson MD Number of Addenda: 0 Note Initiated On: 08/11/2024 12:53 PM Scope In: Scope Out: Endoscopy Department at [facility] - [address] [place] [id number] IMPRESSION: - The examined portion of the ileum was normal. - Patent end-to-side ileo-colonic anastomosis, characterized by healthy appearing mucosa. - Scar at the hepatic flexure. - Diverticulosis in the sigmoid colon. - Internal hemorrhoids. - No specimens collected. Recommendation: - Repeat colonoscopy in 5 years for surveillance. Janessa Hanson MD GI~PROCEDURE ORDERABLES Final Result from Last 3 Months or Most Recently Relevant to Health Maintenance Insurance [employer] MED[employer]ARE ADVANTAGE Care Teams Application Coordinator Relationship Specialty Start Date End Date Keyon Man MD [address] [place] [address] PCP - General Family Medicine 08/11/24
== END 2024-12-09 10:09 | disposition home or self-care (01) ==
LOC: HO.HMCFM 08:55
PROVIDERS: PCP Family Medicine; Visit Provider Family Medicine
DX: I10 Essential (primary) hypertension (principal); E78.5 Hyperlipidemia, unspecified; R73.01 Impaired fasting glucose; Z12.31 Encounter for screening mammogram for malignant neoplasm of breast; Z12.11 Encounter for screening for malignant neoplasm of colon; Z13.820 Encounter for screening for osteoporosis; Z00.00 Encounter for general adult medical examination without abnormal findings

== ENCOUNTER → 2024-12-09 08:54 | Outpatient (BNVA) | payer MEDICARE, SELFPAY | PROVIDERS: PCP Family Medicine; Visit Provider Family Medicine | DX: Z00.00 Encounter for general adult medical examination without abnormal findings (principal); E11.9 Type 2 diabetes mellitus without complications; I10 Essential (primary) hypertension; E78.5 Hyperlipidemia, unspecified | CPT/HCPCS: 96127; 99212 ==

== ENCOUNTER 2025-03-01 09:34 | Outpatient (REF) | payer MEDICARE, SELFPAY ==
--- OUTSIDE RECORDS SUMMARY | 2025-03-01 10:27 | XMS_ITS | Clinical Summary ---
Author Organization [employer] Address [address] [facility] [address] [place] [address] Care Team Providers Care Meat Service Team Member Name Role Phone Unavailable Primary Care Provider Unavailabl e Allergies Active Allergy Reactions Criticality Noted Date Comments Gluten Meal 09/26/2024 Penicillins 09/26/2024 Soy Allergy (Obsolete) 09/26/2024 Medications atorvastatin (Lipitor) 40 MG tablet Take 40 mg by mouth Once per day. Active DULoxetine (Cymbalta) [address] capsule Take 60 mg by mouth Once per day. Do not crush or chew. Active losartan (Cozaar) 50 MG tablet Take by mouth. Active ALPRAZolam (Xanax) 2 MG tablet Take 2 mg by mouth if needed at bedtime for anxiety. Active Sodium Fluoride (PreviDent 5000 Booster Plus) 1.1 % paste Apply 1 Application. to teeth 2 times daily. 112 g 3 02/14/2025 Active Active Problems No known active problems Encounters Date Type Department Care Team Description 02/27/2025 Travel 02/14/2025 2:00 PM EDT Office Visit [facility] [address] [place] [id number] Jean Tucker DMD from Last 3 Months Social History Tobacco Use Types Packs/Day Years Used Date Smoking Tobacco: Never Smokeless Tobacco: Never Tobacco Cessation:Counseling Given: Not Answered Comments Unknown Sex and Gender Information Value Date Recorded Sex Assigned at Female 02/23/2024 1:27 PM EDT Legal Sex Female 1:26 PM EDT Gender Identity Female 02/23/2024 1:27 PM EDT Sexual Orientation Straight 08/29/2024 8: 54 AM EST Last Filed Vital Signs Vital Sign Reading Time Taken Comments Blood Pressure 146/60 09/26/2024 8:25 AM EDT Pulse 114 09/26/2024 8:25 AM EDT Temperature - - Respiratory Rate - - Oxygen Saturation - - Inhaled Oxygen Concentration - - Weight - - Height - - Body Mass Index - - Plan of Treatment Upcoming Encounters Date Type Department Care Team (Late st Contact Info) Description 03/06/2025 1:00 PM EDT Office Visit [facility] [address] [place], [place] [phone] Jana Gonzalez BDS [address] [place], [place] [phone] Health Maintenance Due Date Last Done Comments CT Colonography 1955 Colonoscopy 1955 Colorectal Cancer Screening 1955 Dental Prophylaxis 1955 Dental X-Ray: Bitewings 1955 Depression Screening 1955 FIT DNA/Cologuard 1955 FIT 1955 FOBT 1955 SDOH Screening 1955 Sigmoidoscopy 1955 Alcohol/Substance Use Screening 1965 Hepatitis C Screening 11/05/1971 DTaP/Tdap/Td Vaccines (1 - Tdap) 1972 Mammogram 1993 Pneumococcal Vaccine: 50+ Ye ars (1 of 1 - PCV) 11/05/2003 Zoster Vaccines (1 of 2) 11/05/2003 COVID-19 Vaccine ( - 2023-2 5 season) 2025 Influenza Vaccine (#1) 2025 Dental Oral Exam 03/29/2025 09/26/2024 Tobacco Screening 02/14/2026 02/14/2025 Dental X-Ray: Full Mouth 09/28/2027 09/26/2024 RSV Patients and Pa tients Aged 60 years or older (1 - 1-dose 75+ series) 2028 HIB Vaccines Aged Out No longer eligi [...] patient's age to complete this topic Meningococcal Vaccine Aged Out No valerie evelyn eligible based on patient's age to complete this topic RSV under 20 months Aged Out No longe r eligible based on patient's age to complete this topic Rotavirus Vaccines Aged Out No longer eligible based on patient's age to complete this topic Procedures Procedure Name Priority Date/Time Associated Diagnosis Comments 27 MIFL RESIN-BASED COMPOSITE - 4 OR MORE SURFACES (ANTERIOR) Routine 02/14/2025 2:00 PM EDT 22 MIFL RESIN-BASED COMPOSITE - 4 OR MORE SURFACES (ANTERIOR) Routine 02/14/2025 2:00 PM EDT 26 MDFL COMPOSITE FILLING Routine 2024 12:00 AM EDT 28 PFM CROWN Routine 02/14/2025 12:00 AM EDT 22 ROOT CANAL Routine 02/14/2025 12:00 AM EDT 20 PFM CROWN Routine 02/14/2025 12:00 AM EDT 20 ROOT CANAL Routine 02/14/2025 12:00 AM EDT PANORAMIC RADIOGRAPHIC IMAGE Routine 09/26/2024 8:00 AM EDT COMPREHENSIVE ORAL EVALUATION - NEW OR ESTABLISHED PATIENT Routine 09/26/2024 8:00 AM EDT from Last 3 Months or Most Recently Relevant to Health Maintenance Insurance DENTAL - [place] [address]
--- OUTSIDE RECORDS SUMMARY | 2025-03-01 10:27 | XMS_ITS | Encounter Summary ---
Author Organization [facility] Address [address] [place] [address] Care Team Providers Care Swift Tender Name Role Phone Unavailable Primary Care Provider Unavailabl e Encounter Details Date Type Department Care Team (Latest Contact Info) Description 02/27/2025 Travel Social History Tobacco Use Types Packs/Day Years Used Date Smoking Tobacco: Never Smokeless Tobacco: Never Comments Unknown Sex and Gender Information Value Date Recorded Sex Assigned at Female 02/23/2024 1:27 PM EDT Legal Sex Female 1:26 PM EDT Gender Identity Female 02/23/2024 1:27 PM EDT Sexual Orientation Straight 08/29/2024 8: 54 AM EST documented as of this encounter Plan of Treatment Upcoming Encounters Date Type Department Care Team (Late st Contact Info) Description 03/06/2025 1:00 PM EDT Office Visit [facility] [address] [place] [address] [phone] Jana Gonzalez BDS [address] [place], [place] [phone] documented as of this encounter Visit Diagnoses Not on filedocumented in this encounter
--- OUTSIDE RECORDS SUMMARY | 2025-03-01 10:27 | XMS_ITS | Clinical Summary ---
Author Organization [facility] [address] [facility] Address [address] [place] [address] Phone Care Team Providers Care Junction Maker Name Role Phone Keyon Man MD Primary [...] day. 4 Active colestipoL (COLESTID) 1 gram tabletIndication s:Diarrhea, unspecified type Take 1 tablet (1 g total) by mouth 1 (one) time each day. 90 each 2 5 Active GaviLyte-C 240-22.72-6.72 -5.84 gram solution TAKE [...] 3 TIMES A DAY NEEDED. DO NOT BREAK,CHEW,DIS SOLVE,CUT OR CRUSH 4 Active fluticasone propionate (FLONASE) [...] days 4 Active famotidine (PEPCID) 40 mg tabletIndication s:Gastroesophage al reflux disease without esophagitis,Bright ett's esophagus without dysplasia Take 1 tablet (40 mg total) by mouth 2 (two) times a day. 180 each 3 5 11/29/19 26 Active Surgical History Surgery Date Site/Laterality Comments COLONOSCOPY 07/30/2024 - 08/26/2024 patent end-to-side ileocolonic anastomosis characterized by healthy-appearing mucosa, scar at hepatic flexure, tics sigmoid, internal rhoids ([address] yr) [address] Hanson ESOPHAGOGASTRODUODENOSCOPY 10/28/2023 - 11/27/2023 lg HH, Long segment Barretts, negative for dysplasia (3yr) Dr. Hanson Medical History Medical History Date Comments Colon cancer (CMS/HCC V24, CMS/HCC V28) Calles esophagus Hyperlipidemia Hypertension GERD (gastroesophageal [...] 74 08/11/2024 1:41 PM EST Temperature 36.7 C (98 F) 08/11/2024 12:40 PM EST Respiratory Rate 16 [...] Care Team (Late st Contact Info) Description 03/03/2025 1:00 PM EDT Office Visit Gastroenterology - [address] [place] [phone] Norma Saucedo PA [address] [place] [phone] Health Maintenance Due Date Last Done Comments Breast Cancer Screening 1955 DTaP,Tdap,and Td Vaccines (1 - Tdap) 1972 Zoster Vaccines (1 of 2) 1972 Pneumococcal Vaccine: 50+ Years (1 of 1 - PCV) 11/05/2003 COVID-19 Vaccine (3 - Mixed Product risk series) 04/20/2023 03/23/2023, 04/20/2022 Cholesterol Screening (Lipid Panel) 01/29/2024 Hepatitis C Screening 01/29/2024 Medicare Annual Wellness Visit 01/29/2024 Osteoporosis Screening (Bone Density Screening) 01/29/2024 Social Influencers of Health Screening 01/29/2024 Depression Screening 06/29/2024 Hypertension/CHF/CAD Annual BMP Blood Test 11/29/2024 Influenza Vaccine (#1) 2025 Falls Risk Assessment 08/11/2025 08/11/2024 RSV [...] Maintenance Results * COLONOSCOPY Anesthesia - MAC; [facility] ENDOSCOPY (08/11/2024 1:20 PM EST) Anatomical [...] surveillance. Narrative 08/11/2024 1:19 PM EST [facility] GI Patient Name: Eileen Acuna Procedure Date: 08/11/2024 12:53 PM Date of : 1955 Age: 68 Gender: Female Note Status: Finalized Attending MD: Janessa Hanson MD, Procedure Date No Time: 08/11/2024 Procedure: Colonoscopy Indications: High risk colon cancer surveillance: Personal history of colon cancer Providers: Janessa Hanson MD Referring MD: Keyon Man MD Medicines: Propofol per Anesthesia Complications: No immediate complications. Estimated Blood Loss: Estimated blood loss: none. Procedure: Pre-Anesthesia Assessment: - ASA Grade Assessment: II - A patient with mild systemic disease. After I obtained informed consent, the scope was passed under direct vision. Throughout the procedure, the patient's blood pressure, pulse, and oxygen saturations were monitored continuously.The Colonoscope was introduced through the anus and advanced to the ileocolonic anastomosis. The colonoscopy was performed without difficulty. The patient tolerated the procedure well. The quality of the bowel preparation was excellent. Findings: The perianal and digital rectal examinations were normal. The cj-terminal ileum appeared normal. There was evidence of a prior end-to-side ileo-colonic anastomosis in the ascending colon. This was patent and was characterized by healthy appearing mucosa. The anastomosis was traversed. A large scar was found at the hepatic flexure. The scar tissue was healthy in appearance. A few small-mouthed diverticula were found in the sigmoid colon. Internal hemorrhoids were found during retroflexion. The hemorrhoids were Grade I (internal hemorrhoids that do not prolapse). Procedure Code(s): --- Professional --- G0105, Colorectal cancer screening; colonoscopy on individual at high risk Diagnosis Code(s): --- Professional --- Z85.038, Personal history of other malignant neoplasm of large intestine Z98.0, Intestinal bypass and anastomosis status K57.30, Diverticulosis of large intestine without perforation or abscess without bleeding CPT copyright 2020 [employer]. All rights reserved. The codes documented in this report are preliminary and upon embedded systems software developer review may be revised to meet current compliance requirements. Janessa Hanson MD 08/11/2024 1:18:55 PM This report has been signed electronically.Janessa Hanson MD Number of Addenda: 0 Note Initiated On: 08/11/2024 12:53 PM Scope In: Scope Out: Endoscopy Department at [facility] - [address] [place] [phone] Procedure Note Janessa Hanson MD - 08/11/2024 [facility] GI Patient Name: Eileen Acuna Procedure [...] normal. There was evidence of a prior noy-ss-htjobzbb-colonic anastomosis in the ascending colon. This was [...] or abscess without bleeding CPT copyright 2020 [employer]. All rights reserved. The codes documented in this report are preliminary and upon embedded systems software developer reviewmay be revised to meet current compliance requirements. Janessa Hanson MD 08/11/2024 1:18:55 PM This report has been signed electronically.Janessa Hanson MD Number of Addenda: 0 Note Initiated On: 08/11/2024 12:53 PM Scope In: Scope Out: Endoscopy Department at [facility] - [address] [place] [phone] IMPRESSION: - The examined portion of the [...] Maintenance Insurance [employer] MEDICARE ADVANTAGE Care Teams Junction Maker Relationship Specialty Start Date End Date Keyon Man MD PCP - General Family Medicine 08/11/24
[2025-03-01 11:48] LABS: Hemoglobin A1C 134.2740 umol/L; Total Hemoglobin (HGBA1C) 3221.4564 umol/L
[2025-03-01 12:00] LABS: Alanine Aminotransferase 21 U/L (0-31); Albumin Level 4.6 g/dL (3.5-5.0); Alkaline Phosphatase 91 U/L (39-117); Anion Gap 13 (12-20); Aspartate Amino Transferase 23 U/L (5-31); Blood Urea Nitrogen 10 mg/dL (9-16); Calcium 9.8 mg/dL (8.4-10.2); Carbon Dioxide 25 mmol/L (22-29); Chloride 108 mmol/L (96-108); Cholesterol 137 mg/dL (<200); Estimated Glomerular Filt Rate > 60; HDL Cholesterol 39 mg/dL (>40); Potassium 4.0 mmol/L (3.3-5.1); Sodium 142 mmol/L (135-145); Total Protein 7.3 g/dL (6.5-8.0); Triglycerides 104 mg/dL (<150)
== END 2025-03-01 09:35 | disposition home or self-care (01) ==
LOC: HO.WFDLDS 09:34
PROVIDERS: Visit Provider Family Medicine
DX: Z00.00 Encounter for general adult medical examination without abnormal findings (principal); E78.5 Hyperlipidemia, unspecified; R73.01 Impaired fasting glucose
CPT/HCPCS: 36415; 80053; 80061; 83036

== ENCOUNTER 2025-03-13 11:08 | Outpatient (AMB) | payer MEDICARE, SELFPAY ==
--- NOTE | 2025-03-13 11:10 | A.OFFPC_ITS ---
Vital Signs 03/13/25 11:12 Height 5 ft 10 in Weight 170 lb BMI 24.4 BP 116/84 Blood Pressure Location Rt brachial Position Sitting Pulse 86 Pulse Source Pulse Oximeter Pulse Oximetry (%) 97 Oxygen Delivery Method Room Air Intake Visit Reasons: ER D/C on 02/18 for UTI Allergies Penicillins Allergy (Mild, Verified 03/13/25 11:16) Hives soy Allergy (Mild, Verified 03/13/25 11:16) vomiting, headache gluten Allergy (Mild, Uncoded 03/13/25 11:16) stomach pain, brain fog Tobacco use date assessed: 03/13/25 Fall risk assessment: No Falls in past year Last assessed Fall Risk: 03/13/25 Dental Screening Dental Screen Date: 03/13/25 Did you have a dental visit in the last 12 months?: Yes Did you have a dental problem in the last 6 months where you did not have access to dental care?: No Was dental information given to patient?: Patient has dentist HPI ER D/C on 02/18 for UTI HPI Details 69 y/o female [facility] to [facility] d ischarge [facility]. Presented for evaluation for diarrhea. s. She had reported testing positive for Campylobacter as well as a UTI. Pt notes she has been taking meds for her diarrhea which has been helping. She notes she continues to hydrate well. Hx of elevated fasting glucose. Labs drawn 03/01/25. Reviewed labs with pt. A1c 6.0%. Triglycerides 104. TC 137. LDL 78. HDL low at 39. She is on artovastatin 40mg daily. HPI Comments History of Present Illness Details Documentation assistance for Keyon Man MD, was provided by Efra Cheng, Gum Scoring Machine Operator on at 11:32 AM EST. I, Dr. Man, have read, observed, and verified documentation. [facility] Medical History History of liver cancer Sacral nerve stimulator present Liver cancer Colon cancer Surgical History H/O resection of liver Social History Household Members: Children Housing: House Are you a primary child daycare worker to a significant other at home: No Do you presently have visiting nurse or other home services: No 75 years or older and lives alone: No Alcohol intake: current Comment: a couple Patient Tobacco Use Status: Former Tobacco user e-Cigarette/Vaping Use: Never Used service: No Current occupational status: retired Cognitive needs: No Hearing needs: No Vision needs: No Questionnaire PHQ-9 Over the last 2 weeks, how often have you been bothered by any of the following problems? 1. Little interest or pleasure in doing things: not at all 2. Feeling down, depressed, or hopeless: not at all 3. Trouble falling or staying asleep, or sleeping too much: not at all 4. Feeling tired or having little energy: not at all 5. Poor appetite or overeating: not at all 6. Feeling bad about yourself - or that you are a failure or have let yourself or your family down: not at all 7. Trouble concentrating on things, such as reading the newspaper or watching television: not at all 8. Moving or speaking so slowly that other people could have noticed. Or the opposite - being so fidgety or restless that you have been moving around a lot more than usual: not at all 9. Thoughts that you would be better off or of hurting yourself in some way: not at all Total score: 0 Depression Screening Interpretation: Negative Depression Screening Done: Yes Source: Developed by Drs. Tung Freeman, Cara Mohan, Santos Anderson and colleagues, with an educational ramya from [employer]. Thrive Questionnaire Date Thrive assessed: 09/30/24 I am a: Patient What is your living situation today?: I have a steady place to live Within the past 12 months, did the food you bought not last and you didn't have the money to get more?: Never true Within the past 12 months, did you worry whether your food would run out before you got money to buy more?: Never true Do you have trouble paying for medicines?: No Do you have trouble getting transportation to medical appointments?: No Do you have trouble paying your heating and electricity bill?: No Do you have trouble taking care of your child, family member or friend?: No Do you have trouble with day-to-day activities such as bathing, preparing meals, shopping, managing finances, etc.?: No Are you currently unemployed and looking for a job?: No Are you interested in more education?: No Please select the resources that you would like help with: None Currently or been in a relationship where the following occur: No concerns reported THRIVE Score: 0 AUDIT C Alcohol Use Questionnaire (AUDIT-C) 1. How often do you have a drink containing alcohol?: 2-3 times a week 2. How many drinks containing alcohol do you have on a typical day when you are drinking?: 1 or 2 3. How often do you have six or more drinks on one occasion?: Never Total Score: 3 JULIEN-7 AMB Questionnaire JULIEN-7 Date JULIEN - 7 assessed: 03/13/25 Feeling nervous, anxious, or on edge: 0 = Not at all Not being able to stop or control worryin = Not at all Worrying too much about different things: 0 = Not at all Trouble relaxin = Not at all Being so restless that it is hard to sit still: 0 = Not at all Becoming easily annoyed or irritable: 0 = Not at all Feeling afraid as if something awful might happen: 0 = Not at all Total JULIEN-7 score (0-4 normal; 5-9 mild; 10-14 moderate; 15-21 severe): 0 Source: Developed by Drs. Tung Freeman, Cara Mohan, Santos Anderson and colleagues, with an educational ramya from [employer]. JULIEN-7 Assessment Billing JULIEN-7 Assessment Tool: JULIEN-7 Assessment 13494 Review of Systems Const Denies chills, Denies fatigue, Denies fever(s), Denies headache(s) and Denies weakness ENT Denies dizziness and Denies headache(s) Card Denies dyspnea Resp Denies cough, Denies dyspnea, Denies wheezing and Denies other (shortness of breath) Musc Denies numbness and Denies tingling Neuro Denies dizziness, Denies headache(s), Denies numbness, Denies tingling and Denies weakness Psych Denies anxiety and Denies depression Endo Denies fatigue Aller/Immun Denies wheezing Physical exam (Primary Care) Vital Signs: Last Vital Signs Pulse 86 03/13/25 11:12 BP 116/84 03/13/25 11:12 Pulse Ox 97 03/13/25 11:12 Oxygen Delivery Method Room Air 03/13/25 11:12 BMI result Body Mass Index 24.4 Tobacco/Smoking Status: Tobacco use Status Tobacco use date assessed 03/13/25 03/13/25 11:17 Patient Tobacco Use Status Former Tobacco user 03/13/25 11:11 e-Cigarette/Vaping Use Never Used 03/13/25 11:11 PHQ-9: PHQ-9 Score PHQ-9: Total score 0 03/13/25 11:25 Depression Screening Interpretation: Negative Thrive Assessment: Date of Thrive Assessment Date Thrive assessed 09/30/24 03/13/25 11:11 Currently or been in a relationship where the following occur: No concerns reported Const General: well developed; No acute distress Nutritional Appearance: well nourished Orientation/consciousness: patient oriented x3 HENMT Head: Yes normocephalic and Yes atraumatic Eyes General: appearance normal, both eyes and all related structures Pupils: Equal, round and reactive pupils present EOM: EOMs intact bilaterally Resp Effort & Inspection: normal respiratory effort Auscultation: clear to auscultation bilaterally Cardio Rate: regular rate Rhythm: regular rhythm Heart sounds: S1 normal heart sound present, S2 normal heart sound present, no gallops, no murmurs and no rubs Neuro General: patient oriented x3 and gait normal Cranial nerves: Yes Equal, round and reactive pupils present Psych Affect: normal affect Coding Level of Care Code Est Pt Level 4 (56530) Diagnoses Diarrhea R19.7 UTI (urinary tract infection) N39.0 Pre-diabetes R73.03 Hyperlipidemia E78.5 Hypertension I10 Additional Codes JULIEN-7 Assessment Billing - JULIEN-7 Assessment Tool: JULIEN-7 Assessment 86169 ([id number]) Assessment & Plan Assessment & Plan (1) Diarrhea: Code(s): R19.7 - Diarrhea, unspecified Category: Medical Plan: Patient was seen at the emergency department with diarrhea Testing came back with Campylobacter infection the following day. She has seen gastroenterology and and repeat lab work. Negative for C diff She was started Imodium Symptoms are fairly well controlled and she is hydrating well. (2) UTI (urinary tract infection): Code(s): N39.0 - Urinary tract infection, site not specified Category: Medical Plan: Patient was also found to have a urinary tract infection. She was given cephalexin 500 mg b.i.d. for 5 days She has no symptoms Resolved (3) Pre-diabetes: Code(s): R73.03 - Prediabetes Category: Medical Plan: A1c 6.0%. Pre diabetes range Encouraged diet low in sugars and starches Will continue to monitor (4) Hyperlipidemia: Code(s): E78.5 - Hyperlipidemia, unspecified Category: Medical Plan: LDL cholesterol appears controlled on atorvastatin HDL was a little low and this may be due to decrease in activity while she was sick We can recheck this prior to next visit (5) Hypertension: Code(s): I10 - Essential (primary) hypertension Category: Medical Plan: Blood pressure is well controlled. Goal is Less than 140/90 Continue current medication Orders: Orders Complete Blood Count Auto Diff Today Z00.00 - Encounter for general adult medical examination without abnormal findings Comprehensive [place]. Panel Fast Today Z00.00 - Encounter for general adult medical examination without abnormal findings LDL Cholesterol Direct Today E78.5 - Hyperlipidemia, unspecified
[2025-03-13 11:12] VITALS: BP 116/84; PULSE 86; O2SAT 97; BMI 24.4
--- OUTSIDE RECORDS SUMMARY | 2025-03-13 14:56 | XMS_ITS | Clinical Summary ---
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 Name Role Phone Keyon Man MD [...] 180 each 3 5 11/29/19 26 Active Active Problems Problem Noted Date Diagnosed Date Acid reflux disease 03/03/2025 Assessment & Plan (03/03/2025 1:28 PM EDT): Resolved with famotidine 40 mg at night in addition to pantoprazole 40 mg a day Benign hypertension 03/03/2025 Chronic back pain 03/03/2025 Hyperlipidemia 03/03/2025 Mild major depression ([facility] V24) 03/03/2025 Urinary incontinence 03/03/2025 Encounters Date Type Department Care Team Description 03/03/2025 1:00 PM EDT Office Visit Gastroenterology - [address] [place] [phone] Norma Saucedo PA Diarrhea of presumed infectious origin (Primary Dx); Campylobacter diarrhea; Gastroesophageal reflux disease without esophagitis; 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 Hanson ESOPHAGOGASTRODUODENOSCOPY 10/28/2023 - 11/27/2023 lg HH, Long segment Barretts, negative for dysplasia (3yr) Dr. Hanson CHOLECYSTECTOMY COLON SURGERY COLOSTOMY LIVER BIOPSY LIVER SURGERY APPENDECTOMY Medical History Medical History Date Comments Colon cancer ([facility] V24, [facility] V28) Calles esophagus Hyperlipidemia Hypertension GERD (gastroesophageal reflux disease) Celiac disease Chronic diarrhea Irritable bowel syndrome Family History Medical History Relation Name Comments Esophageal cancer Mother Gavi Roque Irritable bowel syndrome Mother Gavi Roque Relation Name Status Comments Mother Gavi Roque Social History Tobacco Use Types Packs/Day Years Used Date Smoking Tobacco: Former Cigarettes 1.5 15 1 972 - 11/27/2014 Smokeless Tobacco: Never Alcohol Use Standard Drinks/Week Comments Never 0 [...] EST Inhaled Oxygen Concentration - - Weight 76.7 kg (169 lb 3.2 oz) 03/03/2025 12:52 PM EDT Height 179.1 cm (5' 10.5 ) 03/03/2025 12:52 PM E DT Body Mass Index 23.93 03/03/2025 12:52 PM EDT Plan of Treatment Health Maintenance Due Date Last Done Comments Breast Cancer Screening 1955 DTaP,Tdap,and Td Vaccines (1 - Tdap) 1972 Zoster Vaccines (1 of 2) 1972 Pneumococcal Vaccine: 50+ Years (1 of 1 - PCV) 11/05/2003 COVID-19 Vaccine (3 - Mixed Product risk series) 04/20/2023 03/23/2023, 04/20/2022 Cholesterol Screening (Lipid Panel) 01/29/2024 Hepatitis C Screening 01/29/2024 Lung Cancer Screening (Low Dose CT) 01/29/2024 Medicare Annual Wellness Visit 01/29/2024 Osteoporosis [...] Procedure Name Priority Date/Time Associated Diagnosis Comments CLOSTRIDIUM DIFFICILE TOXIN Routine 03/03/2025 3:28 PM EDT Diarrhea of presumed infectious origin COLONOSCOPY Routine 08/11/2024 1:20 PM EST Colon cancer screening from Last 3 Months or Most Recently Relevant to Health Maintenance Results * Clostridium difficile toxin (03/03/2025 3:28 PM EDT) Clostridium difficile GDH Antigen Negative Negative 03/03/2025 4:56 PM EDT [facility] C difficile Toxins A+B, EIA Negative Negative 03/03/2025 4:56 PM EDT [facility] Comment:NEGATIVE FOR TOXIN P RODUCING CLOSTRIDIOIDES DIFFICILE, NO ADDITIONAL TESTING IS NECESSARY. Stool Rectum structure / Unknown Non-blood Collection / Unknown 03/03/2025 3:28 PM EDT 03/03/2025 4:13 PM EDT Norma HOOD [facility] MICROBIOLOGY - GENERAL O RDERABLES Final Result [facility] [address] [place] [address], * COLONOSCOPY Anesthesia - [facility]; [facility] ENDOSCOPY (08/11/2024 1:20 PM EST) [...] for surveillance. Narrative 08/11/2024 1:19 PM EST [facility] GI Patient Name: Eileen Acuna Procedure Date: [...] or abscess without bleeding CPT copyright 2020 [employer]. All rights reserved. The codes documented in this report are preliminary and upon otc clerk review may be revised to meet current compliance requirements. Janessa Hanson MD 08/11/2024 1:18:55 PM This report has been signed electronically.Janessa Hanson MD Number of Addenda: 0 Note Initiated On: 08/11/2024 12:53 PM Scope In: Scope Out: Endoscopy Department at [facility] - [address] [place] [phone] Procedure Note Janessa Hanson MD - 08/11/2024 [facility] GI Patient Name: Eileen Acuna Procedure Date: [...] normal. There was evidence of a prior psh-it-pnsjvptg-colonic anastomosis in the ascending colon. This was [...] or abscess without bleeding CPT copyright 2020 [employer]. All rights reserved. The codes documented in this report are preliminary and upon otc clerk reviewmay be revised to meet current compliance requirements. Janessa Hanson MD 08/11/2024 1:18:55 PM This report has been signed electronically.Janessa Hanson MD Number of Addenda: 0 Note Initiated On: 08/11/2024 12:53 PM Scope In: Scope Out: Endoscopy Department at [facility] - [address] [place] [phone] IMPRESSION: - The examined portion of the [...] Maintenance Insurance [employer] MEDICARE ADVANTAGE Care Teams High Lift Mule Operator Relationship Specialty Start Date End Date Keyon Man MD [address] [place] [address] Dr Fletcher [place] PCP - General Family Medicine 08/11/24
--- OUTSIDE RECORDS SUMMARY | 2025-03-13 14:56 | XMS_ITS | Clinical Summary ---
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 112 g 3 02/14/2025 Active acetaminophen (Tylenol 8 Hour) 650 MG ER tablet Take 1 tablet (650 mg) by mouth every 8 (eight) hours if needed for mild pain for up to 10 days. Do not crush, chew, or split. 30 tablet 03/06/2025 03/16/20 25 Active azithromycin (Zithromax) 500 MG tablet Take 1 tablet (500 mg) by mouth Once per day for 3 days. 3 tablet 03/06/2025 03/09/20 25 Active Problems No known active problems Encounters Date Type Department Care Team Description 03/07/2025 1:00 PM EDT Office Visit [facility] [address] [place] [phone] Jana Gonzalez BDS 03/06/2025 1:00 PM EDT Office Visit [facility] [address] [place] [phone] Jana Gonzalez BDS Dental caries (Primary Dx) 02/27/2025 Travel 02/14/2025 2:00 PM EDT Office Visit [facility] [address] [place] [phone] Jean Tucker DMD from Last 3 Months [...] Sign Reading Time Taken Comments Blood Pressure 100/76 03/07/2025 1:17 PM EDT Pulse 114 09/26/2024 8:25 AM EDT Temperature - - Respiratory Rate - - Oxygen Saturation - - Inhaled Oxygen Concentration - - Weight - - Height - - Body Mass Index - - Plan of Treatment Upcoming Encounters Date Type Department Care Team (Late st Contact Info) Description 03/21/2025 8:30 AM EDT Office Visit [facility] [address] [place] [phone] Jana Gonzalez BDS [address] [place] [phone] Health Maintenance Due Date Last Done Comments CT Colonography 1953 Colonoscopy 1953 Colorectal Cancer Screening 1953 Dental Prophylaxis 1953 Dental X-Ray: Bitewings 1953 Depression Screening 1953 FIT DNA/Cologuard 1953 FIT 1953 FOBT 1953 Lipid Panel 1953 SDOH Screening 1953 Sigmoidoscopy 1953 Alcohol/Substance Use Screening 1965 Hepatitis C Screening 11/05/1971 DTaP/Tdap/Td Vaccines (1 - Tdap) 1972 Mammogram 1993 Pneumococcal Vaccine: 50+ Ye ars (1 of 1 - PCV) 11/05/2003 Zoster Vaccines (1 of 2) 11/05/2003 COVID-19 Vaccine (1 2023-2 5 season) 2025 Influenza Vaccine (#1) 2025 Dental Oral Exam 03/29/2025 09/26/2024 Tobacco Screening 03/07/2026 03/07/2025 Dental X-Ray: Full Mouth 09/28/2027 09/26/2024 RSV [...] Procedure Name Priority Date/Time Associated Diagnosis Comments RE-EVAL - POST-OP OFFICE VISIT Routine 03/07/2025 1:00 PM EDT 23 EXTRACTION, ERUPTED TOOTH OR EXPOSED ROOT (ELEVATION/FORCEPS REMOVAL) Routine 03/06/2025 1:00 PM EDT 24 EXTRACTION, ERUPTED TOOTH OR EXPOSED ROOT (ELEVATION/FORCEPS REMOVAL) Routine 03/06/2025 1:00 PM EDT 25 EXTRACTION, ERUPTED TOOTH OR EXPOSED ROOT (ELEVATION/FORCEPS REMOVAL) Routine 03/06/2025 1:00 PM EDT 27 MIFL RESIN-BASED COMPOSITE - 4 OR [...]
== END 2025-03-13 11:33 | disposition home or self-care (01) ==
LOC: HO.HMCFM 11:09
PROVIDERS: PCP Family Medicine; Visit Provider Family Medicine
DX: R19.7 Diarrhea, unspecified (principal); N39.0 Urinary tract infection, site not specified; R73.03 Prediabetes; E78.5 Hyperlipidemia, unspecified; I10 Essential (primary) hypertension

== ENCOUNTER → 2025-03-13 11:08 | Outpatient (BNVA) | payer MEDICARE, SELFPAY | PROVIDERS: PCP Family Medicine; Visit Provider Family Medicine | DX: I10 Essential (primary) hypertension (principal); R73.03 Prediabetes; E78.5 Hyperlipidemia, unspecified; R19.7 Diarrhea, unspecified; N39.0 Urinary tract infection, site not specified | CPT/HCPCS: 96127; 99212 ==